=== PATIENT | male | born 1950 | race Hispanic/Latino ===

== ENCOUNTER 2017-06-25 06:02 | Inpatient (IN) | payer MEDICARE ==
[~2017-06-25] VITALS: Ht 167.6 cm; Wt 95.2 kg
[~2017-06-25 06:02] MED LIST: EZET10TA26 PO; GABA-531 PO; SERT100T12 PO
[2017-06-25 06:32] LABS: BASOPHILS % (AUTO) 0.5 % (0.0-5.0); EOSINOPHILS % (AUTO) 1.2 % (0.0-8.0); HEMATOCRIT 30.1 % (42-54); LYMPHOCYTES % (AUTO) 14.1 % (21.0-51.0); MEAN CORPUSCULAR HEMOGLOBIN 30.7 pg (27.0-33.0); MEAN CORPUSCULAR VOLUME 92.9 fL (79-99); MONOCYTES % (AUTO) 8.2 % (3.0-13.0); PLATELET COUNT (AUTO) 140 K/uL (130-400); RED BLOOD CELL COUNT(AUTO) 3.24 MIL/uL (4.50-6.20); RED CELL DISTRIBUTION WIDTH 15.2 % (11.0-15.5); WHITE BLOOD COUNT (AUTO) 15.2 K/uL (4.8-10.8)
[2017-06-25] MEDS ORDERED: NITROGLYCERIN 1GM/1 INCH PACKET TD ONE (06:40)
[2017-06-25] MEDS ORDERED: FUROSEMIDE 10 MG/ML 4ML VIAL ONE (06:40)
[2017-06-25] MEDS ORDERED: ONDANSETRON HCL 4 MG/2 ML VIAL ONE (06:44)
[2017-06-25 06:47] LABS: INR 1.07 (0.85-1.15); PARTIAL THROMBOPLASTIN TIME 31.3 SEC (26.3-35.5); PROTHROMBIN TIME 11.2 SEC (9.6-11.6)
[2017-06-25 06:57] LABS: CREATININE 1.8 mg/dL (0.5-1.5); POTASSIUM 4.5 mmol/L (3.5-5.1)
[2017-06-25 06:58] LABS: B-TYPE NATRIURETIC PEPTIDE 2210 pg/mL (0-100)
[2017-06-25 07:03] LABS: ALBUMIN 3.6 g/dL (3.5-5.0); BILIRUBIN,TOTAL 0.9 mg/dL (0.2-1.0); TOTAL PROTEIN, SERUM 8.7 g/dL (6.0-8.3)
[2017-06-25] MEDS ORDERED: DEXTROSE 50%-WATER 50 ML DISP.SYRIN IV PRN (07:30)
[2017-06-25] MEDS ORDERED: FUROSEMIDE 10 MG/ML 2ML VIAL IVP SCH (07:30)
[2017-06-25] MEDS: INSULIN R PO SS1 SQ SCH ×4 (07:30→20:50)
[2017-06-25] MEDS ORDERED: GLUCAGON 1MG KIT 1 MG ML IM PRN (07:30)
[2017-06-25] MEDS ORDERED: LEVOFLOXACIN 500 MG/D5W 100 ML 100 ML ONE (07:48)
[2017-06-25] MEDS ORDERED: ASPIRIN 325 MG TABLET ONE (08:10)
[2017-06-25] MEDS ORDERED: ASPIRIN 81MG TAB.CHEW PO SCH (09:00)
[2017-06-25] MEDS ORDERED: METOPROLOL TARTRATE 50 MG TAB PO SCH (09:00)
[2017-06-25] MEDS: ENOXAPARIN SODIUM 40 MG/0.4 ML SYRINGE SQ SCH (09:00)
[2017-06-25] MEDS ORDERED: HYDRALAZINE HCL 20 MG/ML VIAL ONE (10:54)
[2017-06-25 14:06] VITALS: BP 172/83
[2017-06-25] MEDS ORDERED: CEFEPIME 1GM+NS 50ML 50 ML IV SCH (14:45)
[2017-06-25 15:23] VITALS: BP 156/74
[2017-06-25] MEDS ORDERED: ASPI-1012 PO (15:49)
[2017-06-25] MEDS ORDERED: ATOR20TA65 PO (15:49)
[2017-06-25] MEDS ORDERED: MECL-111 PO (15:49)
[2017-06-25] MEDS ORDERED: EZET10TA26 PO (15:49)
[2017-06-25] MEDS ORDERED: INSREG SQ (15:49)
[2017-06-25] MEDS ORDERED: AMLO10TA2 PO (15:49)
[2017-06-25] MEDS ORDERED: HYD25 PO (15:49)
[2017-06-25] MEDS ORDERED: ONDA4TAB9 PO (15:49)
[2017-06-25] MEDS ORDERED: FURO20TA4 PO (15:49)
[2017-06-25] MEDS ORDERED: SERT50TA12 PO (15:49)
[2017-06-25] MEDS ORDERED: FAMO-136 PO (15:49)
[2017-06-25] MEDS ORDERED: LISI10TA7 PO (15:49)
[2017-06-25] MEDS ORDERED: BENZ-51 PO (15:49)
[2017-06-25] MEDS ORDERED: CARV12.511 PO (15:49)
[2017-06-25] MEDS ORDERED: GABA-531 PO (15:49)
[2017-06-25] MEDS ORDERED: IPRNEB IH (15:56)
[2017-06-25] MEDS ORDERED: BENZONATATE 100 MG CAPSULE PO SCH (17:30)
[2017-06-25] MEDS ORDERED: ONDANSETRON 4 MG TABLET PO PRN (17:30)
[2017-06-25] MEDS: LEVOFLOXACIN 500 MG TABLET PO SCH (17:51)
[2017-06-25] MEDS: CEFEPIME HCL 1 GM VIAL IVP SCH (17:51)
[2017-06-25] MEDS: MECLIZINE HCL 25 MG TABLET PO SCH (17:54)
[2017-06-25] MEDS ORDERED: HYDROXYZINE HCL 25 MG TABLET PO PRN (18:00)
[2017-06-25 19:42] VITALS: BP 201/97
[2017-06-25] MEDS: ATORVASTATIN CALCIUM 20 MG TABLET PO SCH (20:33)
[2017-06-25] MEDS: FAMOTIDINE 20MG TAB 20 MG TAB PO SCH (20:33)
[2017-06-25] MEDS: CARVEDILOL 12.5 MG TABLET PO SCH (20:36)
[2017-06-25 20:37] VITALS: BP 177/70
[2017-06-25] MEDS: IPRATROPIUM 0.5 MG/2.5 ML INH IH SCH (21:23)
[2017-06-26] VITALS (13 sets, daily range): BP systolic 126–177; BP diastolic 60–98
[2017-06-26] MEDS: CEFEPIME HCL 1 GM VIAL IVP SCH ×2 (02:06→14:43)
[2017-06-26] MEDS: MECLIZINE HCL 25 MG TABLET PO SCH ×4 (02:06→16:51)
[2017-06-26] MEDS ORDERED: AMLODIPINE BESYLATE 5 MG TAB PO ONE ×2 (04:09→04:14)
[2017-06-26] MEDS: AMLODIPINE BESYLATE 5 MG TAB PO SCH (04:13)
[2017-06-26] MEDS: INSULIN R PO SS1 SQ SCH ×4 (05:24→21:00)
[2017-06-26 05:54] LABS: CREATININE 1.8 mg/dL (0.5-1.5); POTASSIUM 4.3 mmol/L (3.5-5.1)
[2017-06-26] MEDS: IPRATROPIUM 0.5 MG/2.5 ML INH IH SCH ×2 (05:57→18:43)
[2017-06-26] MEDS: FUROSEMIDE 10 MG/ML 4ML VIAL IV SCH ×2 (08:32→08:43)
[2017-06-26] MEDS: FAMOTIDINE 20MG TAB 20 MG TAB PO SCH ×3 (08:32→20:21)
[2017-06-26] MEDS: EZETIMIBE 10 MG TAB PO SCH ×2 (08:32→08:44)
[2017-06-26] MEDS: ASPIRIN 325 MG TABLET PO SCH ×2 (08:32→08:44)
[2017-06-26] MEDS: GABAPENTIN 300 MG CAPSULE PO SCH ×2 (08:33→08:44)
[2017-06-26] MEDS: LISINOPRIL 10 MG TABLET PO SCH ×2 (08:33→08:44)
[2017-06-26] MEDS: CARVEDILOL 12.5 MG TABLET PO SCH ×3 (08:33→21:00)
[2017-06-26] MEDS: ENOXAPARIN SODIUM 40 MG/0.4 ML SYRINGE SQ SCH ×2 (08:34→08:44)
[2017-06-26] MEDS: SERTRALINE HCL 50 MG TABLET PO SCH ×2 (08:36→08:44)
[2017-06-26] MEDS: BENZONATATE 100 MG CAPSULE PO SCH ×2 (08:45→16:51)
[2017-06-26] MEDS ORDERED: ZOLPIDEM TARTRATE 5 MG TAB PO PRN (08:45)
[2017-06-26] MEDS ORDERED: EZETIMIBE 10 MG TAB PO SCH (09:00)
[2017-06-26] MEDS ORDERED: FUROSEMIDE 10 MG/ML 4ML VIAL IV SCH ×2 (09:00→21:00)
[2017-06-26] MEDS ORDERED: NON-FORMULARY MEDICATION 1 EACH (Sertraline HCl 100 MG) PO SCH (09:00)
[2017-06-26] MEDS ORDERED: ASPIRIN 81MG TAB.CHEW PO SCH (09:00)
[2017-06-26] MEDS: LEVOFLOXACIN 500 MG TABLET PO SCH (14:43)
[2017-06-26] MEDS: OXYCODONE/ACETAMIN 5/325MG TAB PO PRN (14:53)
[2017-06-26 16:04] LABS: APPEARANCE BODY FLUID CLOUDY (CLEAR); SPECIMENTYPE,BODY FLUID PLEURAL
[2017-06-26 16:05] LABS: BODY FLUID WBC 277 /cu. mm.; COLOR,BODY FLUID ORANGE (LT YELLOW); TOTAL VOLUME,BODY FLUID 600 mL
[2017-06-26 16:06] LABS: BODY FLUID RBC 22650 /cu. mm.
[2017-06-26 19:22] LABS: BF LYMPHOCYTE 47 %; BF MONOCYTE 6 %
[2017-06-26] MEDS: ATORVASTATIN CALCIUM 20 MG TABLET PO SCH (20:21)
[2017-06-27] VITALS (7 sets, daily range): BP systolic 144–191; BP diastolic 69–89
[2017-06-27] MEDS: MECLIZINE HCL 25 MG TABLET PO SCH ×3 (00:16→17:43)
[2017-06-27] MEDS: BENZONATATE 100 MG CAPSULE PO SCH ×3 (00:16→17:43)
[2017-06-27] MEDS: CEFEPIME HCL 1 GM VIAL IVP SCH ×2 (04:12→15:22)
[2017-06-27 05:47] LABS: CREATININE 2.1 mg/dL (0.5-1.5); POTASSIUM 4.3 mmol/L (3.5-5.1)
[2017-06-27] MEDS: IPRATROPIUM 0.5 MG/2.5 ML INH IH SCH ×2 (06:00→18:59)
[2017-06-27] MEDS: INSULIN R PO SS1 SQ SCH ×4 (06:51→20:50)
[2017-06-27] MEDS: HYDRALAZINE HCL 20 MG/ML VIAL IV PRN ×2 (06:52→23:17)
[2017-06-27] MEDS: EZETIMIBE 10 MG TAB PO SCH (08:54)
[2017-06-27] MEDS: GABAPENTIN 300 MG CAPSULE PO SCH (08:54)
[2017-06-27] MEDS: ASPIRIN 325 MG TABLET PO SCH (08:55)
[2017-06-27] MEDS: CARVEDILOL 12.5 MG TABLET PO SCH ×2 (08:55→20:49)
[2017-06-27] MEDS: FAMOTIDINE 20MG TAB 20 MG TAB PO SCH ×2 (08:56→20:49)
[2017-06-27] MEDS: AMLODIPINE BESYLATE 5 MG TAB PO SCH (08:57)
[2017-06-27] MEDS: LISINOPRIL 10 MG TABLET PO SCH (08:57)
[2017-06-27] MEDS: SERTRALINE HCL 50 MG TABLET PO SCH (08:58)
[2017-06-27] MEDS: FUROSEMIDE 40 MG TABLET PO SCH ×2 (08:59→17:43)
[2017-06-27] MEDS: ENOXAPARIN SODIUM 40 MG/0.4 ML SYRINGE SQ SCH (08:59)
[2017-06-27] MEDS ORDERED: LACTULOSE 20 GM/30 ML UDCUP PO SCH (15:00)
[2017-06-27] MEDS: LEVOFLOXACIN 500 MG TABLET PO SCH (15:21)
[2017-06-27] MEDS: ATORVASTATIN CALCIUM 20 MG TABLET PO SCH (20:49)
[2017-06-27] MEDS ORDERED: LACTULOSE 20 GM/30 ML UDCUP PO PRN (23:00)
[2017-06-28] MEDS: BENZONATATE 100 MG CAPSULE PO SCH ×4 (00:43→23:53)
[2017-06-28] MEDS: MECLIZINE HCL 25 MG TABLET PO SCH ×4 (00:43→23:55)
[2017-06-28] MEDS: CEFEPIME HCL 1 GM VIAL IVP SCH ×2 (03:27→15:59)
[2017-06-28] MEDS: HYDRALAZINE HCL 20 MG/ML VIAL IV PRN (03:35)
[2017-06-28 04:00] VITALS: BP 176/69
[2017-06-28 05:41] LABS: HEMATOCRIT 26.2 % (42-54); MEAN CORPUSCULAR HEMOGLOBIN 31.4 pg (27.0-33.0); MEAN CORPUSCULAR HGB CONC 34.4 g/dL (32.0-36.0); MEAN CORPUSCULAR VOLUME 91.4 fL (79-99); PLATELET COUNT (AUTO) 120 K/uL (130-400); RED BLOOD CELL COUNT(AUTO) 2.87 MIL/uL (4.50-6.20); RED CELL DISTRIBUTION WIDTH 15.1 % (11.0-15.5); WHITE BLOOD COUNT (AUTO) 7.7 K/uL (4.8-10.8)
[2017-06-28] MEDS: INSULIN R PO SS1 SQ SCH ×4 (05:58→20:51)
[2017-06-28 06:01] LABS: ALBUMIN 2.8 g/dL (3.5-5.0); BILIRUBIN,TOTAL 0.7 mg/dL (0.2-1.0); CREATININE 1.8 mg/dL (0.5-1.5); POTASSIUM 3.9 mmol/L (3.5-5.1); TOTAL PROTEIN, SERUM 7.2 g/dL (6.0-8.3)
[2017-06-28] MEDS: IPRATROPIUM 0.5 MG/2.5 ML INH IH SCH ×2 (07:18→18:25)
[2017-06-28 07:50] VITALS: BP 184/75
[2017-06-28 11:30] VITALS: BP 160/97
[2017-06-28] MEDS ORDERED: METOLAZONE 2.5 MG TABLET PO SCH (13:00)
[2017-06-28] MEDS: FAMOTIDINE 20MG TAB 20 MG TAB PO SCH ×2 (15:56→20:50)
[2017-06-28] MEDS: GABAPENTIN 300 MG CAPSULE PO SCH (15:56)
[2017-06-28] MEDS: FUROSEMIDE 40 MG TABLET PO SCH ×2 (15:56→23:54)
[2017-06-28] MEDS: ASPIRIN 325 MG TABLET PO SCH (15:56)
[2017-06-28] MEDS: LEVOFLOXACIN 500 MG TABLET PO SCH (15:57)
[2017-06-28] MEDS: EZETIMIBE 10 MG TAB PO SCH (15:57)
[2017-06-28] MEDS: AMLODIPINE BESYLATE 5 MG TAB PO SCH (15:57)
[2017-06-28] MEDS: SERTRALINE HCL 50 MG TABLET PO SCH (15:57)
[2017-06-28] MEDS: CARVEDILOL 12.5 MG TABLET PO SCH ×2 (15:57→20:51)
[2017-06-28] MEDS: ENOXAPARIN SODIUM 40 MG/0.4 ML SYRINGE SQ SCH (15:58)
[2017-06-28 16:48] VITALS: BP 186/92
[2017-06-28 20:00] VITALS: BP 120/61
[2017-06-28] MEDS: ATORVASTATIN CALCIUM 20 MG TABLET PO SCH (20:50)
[2017-06-28 21:09] LABS: APPEARANCE,URINE Clear (CLEAR); BILIRUBIN,URINE Negative (NEGATIVE); COLOR,URINE Yellow (YELLOW); GLUCOSE, URINE (UA) Negative (NEGATIVE); KETONES,URINE Negative (NEGATIVE); LEUKOCYTE ESTERASE ,URINE Negative (NEGATIVE); NITRATE,URINE Negative (NEGATIVE); OCCULT BLOOD,URINE Negative (NEGATIVE); PROTEIN,URINE POS 2+ (NEGATIVE); UROBILINOGEN,URINE 0.2 mg/dL (0.2-1.0)
[2017-06-28 21:17] LABS: BACTERIA,URINE Few /HPF (None Seen); RBC,URINE None Seen /HPF (0-1)
[2017-06-28 23:15] VITALS: BP 146/77
[2017-06-29] MEDS: CEFEPIME HCL 1 GM VIAL IVP SCH ×2 (03:28→16:25)
[2017-06-29 03:45] VITALS: BP 137/68
[2017-06-29 05:46] LABS: CREATININE 2.1 mg/dL (0.5-1.5); POTASSIUM 4.1 mmol/L (3.5-5.1)
[2017-06-29 05:52] LABS: % IRON SATURATION 29.3 % (30-44)
[2017-06-29] MEDS: IPRATROPIUM 0.5 MG/2.5 ML INH IH SCH ×2 (06:05→18:34)
[2017-06-29] MEDS: INSULIN R PO SS1 SQ SCH ×4 (06:40→21:00)
[2017-06-29] MEDS ORDERED: LIDOCAINE HCL-MPF 1% 5ML AMP IJ ONE (06:54)
[2017-06-29] MEDS ORDERED: MIDAZOLAM HCL 1 MG/ML 2ML VIAL ONE (06:55)
[2017-06-29] MEDS ORDERED: PROPOFOL 10 MG/ML 20ML VIAL IV ONE (06:55)
[2017-06-29] MEDS ORDERED: FENTANYL CITRATE PF 50 MCG/1 ML 2ML VIAL ONE (06:55)
[2017-06-29 07:00] VITALS: BP 142/66
[2017-06-29] MEDS ORDERED: METOLAZONE 2.5 MG TABLET PO SCH (09:45)
[2017-06-29] MEDS ORDERED: EPOETIN ALFA 10,000 UNIT/ML VIAL SQ SCH (09:45)
[2017-06-29] MEDS: CARVEDILOL 12.5 MG TABLET PO SCH ×2 (10:32→20:55)
[2017-06-29] MEDS: EZETIMIBE 10 MG TAB PO SCH (10:32)
[2017-06-29] MEDS: SERTRALINE HCL 50 MG TABLET PO SCH (10:32)
[2017-06-29] MEDS: ASPIRIN 325 MG TABLET PO SCH (10:33)
[2017-06-29] MEDS: AMLODIPINE BESYLATE 5 MG TAB PO SCH (10:33)
[2017-06-29] MEDS: FAMOTIDINE 20MG TAB 20 MG TAB PO SCH ×2 (10:33→20:55)
[2017-06-29] MEDS: MECLIZINE HCL 25 MG TABLET PO SCH ×2 (10:42→16:26)
[2017-06-29] MEDS: FUROSEMIDE 40 MG TABLET PO SCH (10:42)
[2017-06-29] MEDS: BENZONATATE 100 MG CAPSULE PO SCH ×2 (10:43→16:25)
[2017-06-29] MEDS: GABAPENTIN 300 MG CAPSULE PO SCH (10:43)
[2017-06-29] MEDS: ENOXAPARIN SODIUM 40 MG/0.4 ML SYRINGE SQ SCH (10:44)
[2017-06-29 11:00] VITALS: BP 136/63
[2017-06-29 16:00] VITALS: BP 120/57
[2017-06-29] MEDS: FUROSEMIDE 10 MG/ML 4ML VIAL IV SCH (16:26)
[2017-06-29] MEDS: LEVOFLOXACIN 500 MG TABLET PO SCH (16:26)
[2017-06-29 20:20] VITALS: BP 119/60
[2017-06-29] MEDS: ATORVASTATIN CALCIUM 20 MG TABLET PO SCH (20:55)
[2017-06-29 23:58] VITALS: BP 141/66
[2017-06-30] MEDS: BENZONATATE 100 MG CAPSULE PO SCH ×3 (01:03→18:13)
[2017-06-30] MEDS: MECLIZINE HCL 25 MG TABLET PO SCH ×3 (01:03→18:13)
[2017-06-30] MEDS: FUROSEMIDE 10 MG/ML 4ML VIAL IV SCH ×2 (03:10→15:07)
[2017-06-30] MEDS: CEFEPIME HCL 1 GM VIAL IVP SCH ×2 (03:10→15:07)
[2017-06-30 04:00] VITALS: BP 120/61
[2017-06-30 06:04] LABS: HEMATOCRIT 21.5 % (42-54); MEAN CORPUSCULAR HEMOGLOBIN 33.5 pg (27.0-33.0); MEAN CORPUSCULAR HGB CONC 37.2 g/dL (32.0-36.0); MEAN CORPUSCULAR VOLUME 90.2 fL (79-99); PLATELET COUNT (AUTO) 119 K/uL (130-400); RED BLOOD CELL COUNT(AUTO) 2.38 MIL/uL (4.50-6.20); RED CELL DISTRIBUTION WIDTH 14.4 % (11.0-15.5); WHITE BLOOD COUNT (AUTO) 6.9 K/uL (4.8-10.8)
[2017-06-30] MEDS: IPRATROPIUM 0.5 MG/2.5 ML INH IH SCH ×2 (06:08→19:24)
[2017-06-30 06:18] LABS: ALBUMIN 2.5 g/dL (3.5-5.0); BILIRUBIN,TOTAL 0.4 mg/dL (0.2-1.0); CREATININE 2.4 mg/dL (0.5-1.5); MAGNESIUM 1.9 mg/dL (1.80-2.40); PHOSPHORUS 4.3 mg/dL (2.5-4.9); POTASSIUM 4.4 mmol/L (3.5-5.1); TOTAL PROTEIN, SERUM 6.8 g/dL (6.0-8.3)
[2017-06-30 07:00] VITALS: BP 102/59
[2017-06-30] MEDS: INSULIN R PO SS1 SQ SCH ×4 (07:06→20:19)
[2017-06-30] MEDS: AMLODIPINE BESYLATE 5 MG TAB PO SCH (09:00)
[2017-06-30] MEDS: EZETIMIBE 10 MG TAB PO SCH (10:40)
[2017-06-30] MEDS: CARVEDILOL 12.5 MG TABLET PO SCH ×2 (10:40→19:55)
[2017-06-30] MEDS: ASPIRIN 325 MG TABLET PO SCH (10:40)
[2017-06-30] MEDS: FAMOTIDINE 20MG TAB 20 MG TAB PO SCH ×2 (10:40→19:55)
[2017-06-30] MEDS: GABAPENTIN 300 MG CAPSULE PO SCH (10:41)
[2017-06-30] MEDS: SERTRALINE HCL 50 MG TABLET PO SCH (10:41)
[2017-06-30] MEDS: ENOXAPARIN SODIUM 40 MG/0.4 ML SYRINGE SQ SCH (10:41)
[2017-06-30 11:00] VITALS: BP 121/52
[2017-06-30] MEDS: OXYCODONE/ACETAMIN 5/325MG TAB PO PRN (15:07)
[2017-06-30] MEDS: LEVOFLOXACIN 500 MG TABLET PO SCH (15:07)
[2017-06-30 16:00] VITALS: BP 125/63
[2017-06-30] MEDS: ATORVASTATIN CALCIUM 20 MG TABLET PO SCH (19:54)
[2017-06-30 19:56] VITALS: BP 113/53
[2017-06-30] MEDS ORDERED: EPOETIN ALFA 2,000 UNIT/ML VIAL SQ SCH (21:00)
[2017-06-30 23:25] VITALS: BP 109/53
[2017-07-01] MEDS: MECLIZINE HCL 25 MG TABLET PO SCH ×2 (01:03→08:48)
[2017-07-01] MEDS: BENZONATATE 100 MG CAPSULE PO SCH ×2 (01:03→08:46)
[2017-07-01] MEDS: OXYCODONE/ACETAMIN 5/325MG TAB PO PRN (01:05)
[2017-07-01] MEDS: FUROSEMIDE 10 MG/ML 4ML VIAL IV SCH (03:09)
[2017-07-01] MEDS: CEFEPIME HCL 1 GM VIAL IVP SCH ×2 (03:09→15:25)
[2017-07-01 04:23] VITALS: BP 140/63
[2017-07-01 05:44] LABS: HEMATOCRIT 24.1 % (42-54); MEAN CORPUSCULAR HEMOGLOBIN 30.9 pg (27.0-33.0); MEAN CORPUSCULAR VOLUME 90.8 fL (79-99); PLATELET COUNT (AUTO) 136 K/uL (130-400); RED BLOOD CELL COUNT(AUTO) 2.65 MIL/uL (4.50-6.20); RED CELL DISTRIBUTION WIDTH 14.4 % (11.0-15.5)
[2017-07-01 05:50] LABS: CREATININE 2.5 mg/dL (0.5-1.5); POTASSIUM 4.9 mmol/L (3.5-5.1)
[2017-07-01] MEDS: INSULIN R PO SS1 SQ SCH ×4 (06:11→21:00)
[2017-07-01] MEDS: IPRATROPIUM 0.5 MG/2.5 ML INH IH SCH (06:53)
[2017-07-01 07:00] VITALS: BP 129/55
[2017-07-01] MEDS: AMLODIPINE BESYLATE 5 MG TAB PO SCH (08:46)
[2017-07-01] MEDS: CARVEDILOL 12.5 MG TABLET PO SCH ×2 (08:46→19:47)
[2017-07-01] MEDS: SERTRALINE HCL 50 MG TABLET PO SCH (08:47)
[2017-07-01] MEDS: FAMOTIDINE 20MG TAB 20 MG TAB PO SCH (08:47)
[2017-07-01] MEDS: GABAPENTIN 300 MG CAPSULE PO SCH (08:47)
[2017-07-01] MEDS: EZETIMIBE 10 MG TAB PO SCH (08:48)
[2017-07-01] MEDS: ENOXAPARIN SODIUM 40 MG/0.4 ML SYRINGE SQ SCH (08:58)
[2017-07-01] MEDS: ASPIRIN 325 MG TABLET PO SCH (08:58)
[2017-07-01] MEDS ORDERED: RENAL DOSE IV PRN (10:15)
[2017-07-01] MEDS ORDERED: FAMOTIDINE 20MG TAB 20 MG TAB PO SCH (10:28)
[2017-07-01 11:00] VITALS: BP 123/49
[2017-07-01] MEDS ORDERED: SODIUM CHLORIDE 0.9% 1000ML 1,000 ML IV SCH (11:30)
[2017-07-01 16:00] VITALS: BP 111/55
[2017-07-01] MEDS: IPRATROPIUM 0.5 MG/2.5 ML INH IH PRN (18:11)
[2017-07-01] MEDS: ATORVASTATIN CALCIUM 20 MG TABLET PO SCH (19:44)
[2017-07-01] MEDS: FUROSEMIDE 40 MG TABLET PO SCH (19:45)
[2017-07-01] MEDS: FERROUS SULFATE 325 MG TABLET.DR PO SCH (19:45)
[2017-07-01 20:00] VITALS: BP 126/85
[2017-07-02] VITALS: BP 116/55
[2017-07-02] MEDS: CEFEPIME HCL 1 GM VIAL IVP SCH ×2 (02:27→15:26)
[2017-07-02 04:00] VITALS: BP 115/56
[2017-07-02 05:39] LABS: HEMATOCRIT 21.9 % (42-54); MEAN CORPUSCULAR HEMOGLOBIN 33.5 pg (27.0-33.0); MEAN CORPUSCULAR HGB CONC 37.1 g/dL (32.0-36.0); MEAN CORPUSCULAR VOLUME 90.2 fL (79-99); PLATELET COUNT (AUTO) 113 K/uL (130-400); RED BLOOD CELL COUNT(AUTO) 2.43 MIL/uL (4.50-6.20); WHITE BLOOD COUNT (AUTO) 6.5 K/uL (4.8-10.8)
[2017-07-02 05:48] LABS: CREATININE 2.7 mg/dL (0.5-1.5); POTASSIUM 4.7 mmol/L (3.5-5.1)
[2017-07-02] MEDS: IPRATROPIUM 0.5 MG/2.5 ML INH IH PRN (07:19)
[2017-07-02 07:24] VITALS: BP 131/59
[2017-07-02] MEDS: INSULIN R PO SS1 SQ SCH ×2 (07:30→15:25)
[2017-07-02] MEDS ORDERED: FAMOTIDINE 20MG TAB 20 MG TAB PO SCH (09:00)
[2017-07-02] MEDS ORDERED: FUROSEMIDE 40 MG TABLET PO SCH (09:00)
[2017-07-02] MEDS: GABAPENTIN 300 MG CAPSULE PO SCH (10:45)
[2017-07-02] MEDS: AMLODIPINE BESYLATE 5 MG TAB PO SCH (10:46)
[2017-07-02] MEDS: SERTRALINE HCL 50 MG TABLET PO SCH (10:46)
[2017-07-02] MEDS: EZETIMIBE 10 MG TAB PO SCH (10:47)
[2017-07-02] MEDS: FUROSEMIDE 40 MG TABLET PO SCH (10:47)
[2017-07-02] MEDS: FERROUS SULFATE 325 MG TABLET.DR PO SCH (10:47)
[2017-07-02] MEDS: ASPIRIN 325 MG TABLET PO SCH (10:47)
[2017-07-02] MEDS: CARVEDILOL 12.5 MG TABLET PO SCH (10:47)
[2017-07-02] MEDS: ENOXAPARIN SODIUM 40 MG/0.4 ML SYRINGE SQ SCH (10:55)
[2017-07-02] MEDS: OXYCODONE/ACETAMIN 5/325MG TAB PO PRN (10:57)
[2017-07-02 11:00] VITALS: BP 121/49
[2017-07-02] MEDS ORDERED: LEVOFLOXACIN 500 MG TABLET PO SCH (14:00)
[2017-07-02 16:00] VITALS: BP 105/53
== END 2017-07-02 15:30 | DRG 871 ==
LOC: EDH 06:02 → EDHIP 07:10 → 4BH 12:10 → 4CH 12:52 → 4BH 13:07
PROVIDERS: ADMIT Internal Medicine Infectious Disease; ATTEND Internal Medicine Infectious Disease
PROC: 5A09357 Assistance with Respiratory Ventilation, Less than 24 Consecutive Hours, Continuous Positive Airway Pressure (ICD-10-PCS; 2017-06-25)
PROC: 0W9930Z Drainage of Right Pleural Cavity with Drainage Device, Percutaneous Approach (ICD-10-PCS; principal; 2017-06-26)
PROC: 5A09357 Assistance with Respiratory Ventilation, Less than 24 Consecutive Hours, Continuous Positive Airway Pressure (ICD-10-PCS; 2017-06-26)
DX: A41.9 Sepsis, unspecified organism (principal); J18.9 Pneumonia, unspecified organism; J96.91 Respiratory failure, unspecified with hypoxia; I21.4 Non-ST elevation (NSTEMI) myocardial infarction; N17.9 Acute kidney failure, unspecified; I13.2 Hypertensive heart and chronic kidney disease with heart failure and with stage 5 chronic kidney disease, or end stage renal disease; J90 Pleural effusion, not elsewhere classified; N18.6 End stage renal disease; I50.23 Acute on chronic systolic (congestive) heart failure; J44.0 Chronic obstructive pulmonary disease with (acute) lower respiratory infection; L03.90 Cellulitis, unspecified; J44.1 Chronic obstructive pulmonary disease with (acute) exacerbation; K52.9 Noninfective gastroenteritis and colitis, unspecified; I25.10 Atherosclerotic heart disease of native coronary artery without angina pectoris; G40.909 Epilepsy, unspecified, not intractable, without status epilepticus; G47.33 Obstructive sleep apnea (adult) (pediatric); E87.5 Hyperkalemia; E78.5 Hyperlipidemia, unspecified; E78.00 Pure hypercholesterolemia, unspecified; E66.01 Morbid (severe) obesity due to excess calories; E11.22 Type 2 diabetes mellitus with diabetic chronic kidney disease; I25.5 Ischemic cardiomyopathy; D64.9 Anemia, unspecified; B95.62 Methicillin resistant Staphylococcus aureus infection as the cause of diseases classified elsewhere; Z68.33 Body mass index [BMI] 33.0-33.9, adult; I25.2 Old myocardial infarction; Z99.81 Dependence on supplemental oxygen; Z72.0 Tobacco use; Z95.1 Presence of aortocoronary bypass graft; Z99.2 Dependence on renal dialysis; Z91.19 Patient's noncompliance with other medical treatment and regimen; Z88.0 Allergy status to penicillin; Z83.3 Family history of diabetes mellitus; Z82.49 Family history of ischemic heart disease and other diseases of the circulatory system
CPT/HCPCS: 36415; 71045; 71046; 71250; 76770; 80048; 80053; 81001; 82550; 82945; 82948; 83540; 83550; 83615; 83735; 83880; 83986; 84100; 84155; 84157; 84484; 85025; 85027; 85610; 85730; 87040; 87071; 87103; 87116; 87205; 87206; 88108; 88341; 88342; 89051; 93005; 93306; 94640; 94660; 94664; 99291; A4218; J0360; J0692; J0885; J1650; J1940; J1956; J2250; J2405; J2704; J3010; J3490

== ENCOUNTER 2017-07-26 22:40 | Inpatient (IN) | payer MEDICARE ==
[~2017-07-26] VITALS: Ht 167.6 cm; Wt 98.6 kg
[~2017-07-26 22:40] MED LIST changes: +AMLO10TA2 PO; +ASPI-1012 PO; +ATOR20TA65 PO; +BENZ-51 PO; +CARV12.511 PO; +FAMO-136 PO; +FURO20TA4 PO; +HYD25 PO; +INSREG SQ; +IPRNEB IH; +LISI10TA7 PO; +MECL-111 PO; +ONDA4TAB9 PO; +SERT50TA12 PO
[2017-07-26] MEDS ORDERED: ASPIRIN 81MG TAB.CHEW ONE (23:01)
[2017-07-26 23:06] LABS: ABG BASE EXCESS -2.2 mmol/L (-2.0-3.0); ABG HCO3 21.6 mmol/L (21.0-28.0); ABG PCO2 35 mmHg (35-48)
[2017-07-26 23:31] LABS: BASOPHILS % (AUTO) 0.5 % (0.0-5.0); EOSINOPHILS % (AUTO) 2.6 % (0.0-8.0); HEMATOCRIT 25.8 % (42-54); LYMPHOCYTES % (AUTO) 10.3 % (21.0-51.0); MEAN CORPUSCULAR HEMOGLOBIN 30.7 pg (27.0-33.0); MEAN CORPUSCULAR HGB CONC 33.8 g/dL (32.0-36.0); MEAN CORPUSCULAR VOLUME 90.8 fL (79-99); MONOCYTES % (AUTO) 8.8 % (3.0-13.0); NEUTROPHILS % (AUTO) 77.8 % (40.0-77.0); PLATELET COUNT (AUTO) 146 K/uL (130-400); RED BLOOD CELL COUNT(AUTO) 2.85 MIL/uL (4.50-6.20); WHITE BLOOD COUNT (AUTO) 10.6 K/uL (4.8-10.8)
[2017-07-26 23:42] LABS: INR 1.08 (0.85-1.15); PARTIAL THROMBOPLASTIN TIME 32.9 SEC (26.3-35.5); PROTHROMBIN TIME 11.3 SEC (9.6-11.6)
[2017-07-26 23:44] LABS: CREATININE 1.4 mg/dL (0.5-1.5); POTASSIUM 5.3 mmol/L (3.5-5.1)
[2017-07-26 23:58] LABS: ALBUMIN 3.3 g/dL (3.5-5.0); BILIRUBIN,TOTAL 0.9 mg/dL (0.2-1.0); TOTAL PROTEIN, SERUM 8.3 g/dL (6.0-8.3)
[2017-07-27 00:06] LABS: B-TYPE NATRIURETIC PEPTIDE 1910 pg/mL (0-100)
[2017-07-27] MEDS ORDERED: FUROSEMIDE 10 MG/ML 4ML VIAL ONE (01:01)
[2017-07-27 01:16] LABS: APPEARANCE,URINE Cloudy (CLEAR); BILIRUBIN,URINE Negative (NEGATIVE); COLOR,URINE Yellow (YELLOW); GLUCOSE, URINE (UA) Negative (NEGATIVE); KETONES,URINE Negative (NEGATIVE); LEUKOCYTE ESTERASE ,URINE Negative (NEGATIVE); NITRATE,URINE Negative (NEGATIVE); OCCULT BLOOD,URINE Moderate (NEGATIVE); PROTEIN,URINE >=1000 (NEGATIVE)
[2017-07-27 01:27] LABS: BACTERIA,URINE None Seen /HPF (None Seen); RBC,URINE 0-1 /HPF (0-1); SQUAMOUS EPITHELIAL CELL,UR Few /LPF (0-2); WBC,URINE None Seen /HPF (0-1); YEAST,URINE BUDDING Few /HPF (None Seen)
[2017-07-27] MEDS ORDERED: GLUCAGON 1MG KIT 1 MG ML IM PRN ×2 (06:00→06:30)
[2017-07-27] MEDS ORDERED: DEXTROSE 50%-WATER 50 ML DISP.SYRIN IV PRN ×2 (06:00→06:30)
[2017-07-27] MEDS ORDERED: LIDOCAINE HCL-MPF 1% 2ML VIAL IJ PRN (06:00)
[2017-07-27] MEDS ORDERED: POTASSIUM CHLORIDE 10% ELIXIR 20 MEQ/15 ML UDCUP PO PRN ×2 (06:00→06:30)
[2017-07-27] MEDS ORDERED: POTASSIUM CHLORIDE 20MEQ/100ML 100 ML IV PRN ×2 (06:00→06:30)
[2017-07-27] MEDS ORDERED: POTASSIUM CHLORIDE 20 MEQ ERTAB PO PRN ×2 (06:00→06:30)
[2017-07-27] MEDS ORDERED: IPRATROPIUM/ALBUTEROL SULFATE 3 ML SOLUTION IH PRN (06:15)
[2017-07-27 06:20] VITALS: BP 151/69
[2017-07-27] MEDS ORDERED: LIDOCAINE HCL-MPF 1% 2ML VIAL IVP PRN (06:30)
[2017-07-27 06:51] LABS: CREATININE 1.6 mg/dL (0.5-1.5); POTASSIUM 5.5 mmol/L (3.5-5.1)
[2017-07-27 06:57] LABS: EOSINOPHILS % (AUTO) 2.4 % (0.0-8.0); HEMATOCRIT 23.1 % (42-54); LYMPHOCYTES % (AUTO) 18.9 % (21.0-51.0); MEAN CORPUSCULAR HEMOGLOBIN 30.9 pg (27.0-33.0); MEAN CORPUSCULAR HGB CONC 34.1 g/dL (32.0-36.0); MEAN CORPUSCULAR VOLUME 90.4 fL (79-99); MONOCYTES % (AUTO) 10.3 % (3.0-13.0); NEUTROPHILS % (AUTO) 67.4 % (40.0-77.0); PLATELET COUNT (AUTO) 123 K/uL (130-400); RED BLOOD CELL COUNT(AUTO) 2.55 MIL/uL (4.50-6.20); RED CELL DISTRIBUTION WIDTH 14.8 % (11.0-15.5); WHITE BLOOD COUNT (AUTO) 8.3 K/uL (4.8-10.8)
[2017-07-27] MEDS: INSULIN R PO SS1 SQ SCH ×4 (06:57→21:00)
[2017-07-27 07:00] VITALS: BP 151/69
[2017-07-27] MEDS: ENOXAPARIN SODIUM 40 MG/0.4 ML SYRINGE SQ SCH (09:00)
[2017-07-27] MEDS ORDERED: CEFTRIAXONE 1GM/D5W 50ML 50 ML IV SCH (09:00)
[2017-07-27] MEDS: AZITHROMYCIN 250 MG TABLET PO SCH (09:00)
[2017-07-27] MEDS: FUROSEMIDE 10 MG/ML 4ML VIAL IVP SCH ×2 (09:00→21:00)
[2017-07-27 11:00] VITALS: BP 138/57
[2017-07-28] MEDS ORDERED: CHOL100018 PO (03:50)
[2017-07-28] MEDS ORDERED: FOLI0.8T22 PO (03:50)
[2017-07-28] MEDS ORDERED: GABA-531 PO (03:50)
[2017-07-28] MEDS: INSULIN R PO SS1 SQ SCH ×2 (06:42→11:30)
[2017-07-28] MEDS: AZITHROMYCIN 250 MG TABLET PO SCH (09:00)
[2017-07-28] MEDS: FUROSEMIDE 10 MG/ML 4ML VIAL IVP SCH (09:00)
[2017-07-28] MEDS: ENOXAPARIN SODIUM 40 MG/0.4 ML SYRINGE SQ SCH (09:00)
[2017-07-28] MEDS ORDERED: FUROSEMIDE 10 MG/ML 4ML VIAL IV SCH (12:15)
== END 2017-07-28 16:00 | DRG 291 ==
LOC: EDH 22:40 → OBSVTOIN 07-27 04:50 → EDHIP 07-27 04:50 → 3CH 07-27 05:19
PROVIDERS: ADMIT Internal Medicine; ATTEND Internal Medicine
DX: I11.0 Hypertensive heart disease with heart failure (principal); J96.91 Respiratory failure, unspecified with hypoxia; F05 Delirium due to known physiological condition; J44.1 Chronic obstructive pulmonary disease with (acute) exacerbation; I50.23 Acute on chronic systolic (congestive) heart failure; E11.51 Type 2 diabetes mellitus with diabetic peripheral angiopathy without gangrene; I50.9 Heart failure, unspecified; I25.10 Atherosclerotic heart disease of native coronary artery without angina pectoris; G47.30 Sleep apnea, unspecified; G40.909 Epilepsy, unspecified, not intractable, without status epilepticus; E11.9 Type 2 diabetes mellitus without complications; F03.90 Unspecified dementia, unspecified severity, without behavioral disturbance, psychotic disturbance, mood disturbance, and anxiety; J45.909 Unspecified asthma, uncomplicated; Z88.0 Allergy status to penicillin
CPT/HCPCS: 36415; 36600; 71045; 80048; 80053; 81001; 82550; 82553; 82803; 82948; 83874; 83880; 84484; 85025; 85610; 85730; 87804; 93005; 94640; 94660; 94664; 99291; J1650; J1940

== ENCOUNTER 2017-09-04 17:37 | Inpatient (IN) | payer MEDICARE ==
[~2017-09-04] VITALS: Ht 167.6 cm; Wt 90.8 kg
[~2017-09-04 17:37] MED LIST changes: -ATOR20TA65 PO; +CHOL100018 PO; -FAMO-136 PO; +FOLI0.8T22 PO; -HYD25 PO; -INSREG SQ; -LISI10TA7 PO; -MECL-111 PO; -ONDA4TAB9 PO; -SERT50TA12 PO
[2017-09-04 18:20] LABS: BASOPHILS % (AUTO) 0.5 % (0.0-5.0); EOSINOPHILS % (AUTO) 4.2 % (0.0-8.0); HEMATOCRIT 28.7 % (42-54); LYMPHOCYTES % (AUTO) 9.6 % (21.0-51.0); MEAN CORPUSCULAR HEMOGLOBIN 30.4 pg (27.0-33.0); MEAN CORPUSCULAR HGB CONC 33.6 g/dL (32.0-36.0); MEAN CORPUSCULAR VOLUME 90.5 fL (79-99); MONOCYTES % (AUTO) 7.2 % (3.0-13.0); NEUTROPHILS % (AUTO) 78.5 % (40.0-77.0); PLATELET COUNT (AUTO) 171 K/uL (130-400); RED BLOOD CELL COUNT(AUTO) 3.18 MIL/uL (4.50-6.20); RED CELL DISTRIBUTION WIDTH 17.1 % (11.0-15.5); WHITE BLOOD COUNT (AUTO) 10.6 K/uL (4.8-10.8)
[2017-09-04 18:45] LABS: B-TYPE NATRIURETIC PEPTIDE 1580 pg/mL (0-100)
[2017-09-04 18:47] LABS: CREATININE 1.6 mg/dL (0.5-1.5)
[2017-09-04 18:51] LABS: INR 1.03 (0.85-1.15); PARTIAL THROMBOPLASTIN TIME 30.6 SEC (26.3-35.5); PROTHROMBIN TIME 10.8 SEC (9.6-11.6)
[2017-09-04 18:52] LABS: ALBUMIN 3.3 g/dL (3.5-5.0); BILIRUBIN,TOTAL 0.5 mg/dL (0.2-1.0); TOTAL PROTEIN, SERUM 8.5 g/dL (6.0-8.3)
[2017-09-04] MEDS ORDERED: NITROGLYCERIN 1GM/1 INCH PACKET TD ONE (18:56)
[2017-09-04] MEDS ORDERED: FUROSEMIDE 10 MG/ML 4ML VIAL ONE (19:32)
[2017-09-04] MEDS ORDERED: FUROSEMIDE 10 MG/ML 2ML VIAL ONE (19:32)
[2017-09-04 19:43] LABS: ABG BASE EXCESS -6.2 mmol/L (-2.0-3.0); ABG HCO3 19.6 mmol/L (21.0-28.0); ABG OXYGEN SATURATION 97.2 % (95.0-99.0); ABG PCO2 40 mmHg (35-48)
[2017-09-04 20:25] LABS: APPEARANCE,URINE Clear (CLEAR); BILIRUBIN,URINE Negative (NEGATIVE); COLOR,URINE Yellow (YELLOW); GLUCOSE, URINE (UA) Negative (NEGATIVE); KETONES,URINE Negative (NEGATIVE); LEUKOCYTE ESTERASE ,URINE Negative (NEGATIVE); NITRATE,URINE Negative (NEGATIVE); OCCULT BLOOD,URINE Small (NEGATIVE); PROTEIN,URINE POS 2+ (NEGATIVE); UROBILINOGEN,URINE 0.2 mg/dL (0.2-1.0)
[2017-09-04 20:41] LABS: BACTERIA,URINE Few /HPF (None Seen); RBC,URINE 0-1 /HPF (0-1); SQUAMOUS EPITHELIAL CELL,UR Rare /HPF (0-2); WBC,URINE 0-1 /HPF (0-1)
[2017-09-04 22:04] LABS: CREATINE KINASE MB 3.1 ng/mL (0.5-3.6)
[2017-09-04 22:25] VITALS: BP 156/69
[2017-09-05] MEDS ORDERED: GLUCAGON 1MG KIT 1 MG ML IM PRN (01:15)
[2017-09-05] MEDS ORDERED: DEXTROSE 50%-WATER 50 ML DISP.SYRIN IV PRN (01:15)
[2017-09-05 04:11] LABS: BASOPHILS % (AUTO) 0.5 % (0.0-5.0); EOSINOPHILS % (AUTO) 3.1 % (0.0-8.0); HEMATOCRIT 24.4 % (42-54); LYMPHOCYTES % (AUTO) 16.6 % (21.0-51.0); MEAN CORPUSCULAR HGB CONC 34.4 g/dL (32.0-36.0); MEAN CORPUSCULAR VOLUME 90.1 fL (79-99); MONOCYTES % (AUTO) 7.4 % (3.0-13.0); NEUTROPHILS % (AUTO) 72.4 % (40.0-77.0); PLATELET COUNT (AUTO) 148 K/uL (130-400); RED BLOOD CELL COUNT(AUTO) 2.71 MIL/uL (4.50-6.20); RED CELL DISTRIBUTION WIDTH 16.8 % (11.0-15.5)
[2017-09-05 04:18] LABS: B-TYPE NATRIURETIC PEPTIDE 2020 pg/mL (0-100)
[2017-09-05 04:21] VITALS: BP 178/86
[2017-09-05 04:29] LABS: ALBUMIN 2.7 g/dL (3.5-5.0); BILIRUBIN,TOTAL 0.6 mg/dL (0.2-1.0); CREATINE KINASE MB 2.4 ng/mL (0.5-3.6); CREATININE 1.5 mg/dL (0.5-1.5); POTASSIUM 4.9 mmol/L (3.5-5.1); TROPONIN I 0.14 ng/mL (0.00-0.06)
[2017-09-05] MEDS: INSULIN HUMULIN R 100 UNIT/ML 3ML SQ SCH ×4 (06:33→20:56)
[2017-09-05 07:28] VITALS: BP 153/74
[2017-09-05] MEDS: FAMOTIDINE 20MG TAB 20 MG TAB PO SCH (10:39)
[2017-09-05] MEDS: FUROSEMIDE 10 MG/ML 4ML VIAL IVP SCH ×2 (10:40→20:58)
[2017-09-05] MEDS: ENOXAPARIN SODIUM 30 MG/0.3 ML SQ SCH (10:40)
[2017-09-05 11:37] VITALS: BP 163/73
[2017-09-05 16:05] VITALS: BP 148/65
[2017-09-05 20:26] VITALS: BP 141/65
[2017-09-05] MEDS: CARVEDILOL 12.5 MG TABLET PO SCH (20:58)
[2017-09-05 23:23] VITALS: BP 130/64
[2017-09-06 03:21] VITALS: BP 158/71
[2017-09-06] MEDS: INSULIN HUMULIN R 100 UNIT/ML 3ML SQ SCH ×4 (06:10→21:00)
[2017-09-06 07:03] LABS: CREATININE 1.8 mg/dL (0.5-1.5); POTASSIUM 4.8 mmol/L (3.5-5.1)
[2017-09-06 07:25] VITALS: BP 192/79
[2017-09-06] MEDS ORDERED: ACETAMINOPHEN 325 MG TAB ONE (10:45)
[2017-09-06] MEDS: ASPIRIN 81MG TAB.CHEW PO SCH (10:47)
[2017-09-06] MEDS: CARVEDILOL 12.5 MG TABLET PO SCH ×2 (10:47→21:32)
[2017-09-06] MEDS: LOSARTAN 50 MG TABLET PO SCH (10:47)
[2017-09-06] MEDS: FUROSEMIDE 10 MG/ML 4ML VIAL IVP SCH ×2 (10:48→21:31)
[2017-09-06] MEDS: FAMOTIDINE 20MG TAB 20 MG TAB PO SCH (10:48)
[2017-09-06] MEDS: ENOXAPARIN SODIUM 30 MG/0.3 ML SQ SCH (10:48)
[2017-09-06 11:40] VITALS: BP 163/69
[2017-09-06 16:09] VITALS: BP 136/63
[2017-09-06 19:38] VITALS: BP 148/64
[2017-09-06] MEDS: ATORVASTATIN CALCIUM 20 MG TABLET PO SCH (21:32)
[2017-09-06 23:18] VITALS: BP 165/70
[2017-09-07 03:44] VITALS: BP 158/71
[2017-09-07 04:04] LABS: POTASSIUM 4.8 mmol/L (3.5-5.1)
[2017-09-07] MEDS: INSULIN HUMULIN R 100 UNIT/ML 3ML SQ SCH ×4 (06:37→20:56)
[2017-09-07 07:47] VITALS: BP 174/91
[2017-09-07] MEDS: CARVEDILOL 12.5 MG TABLET PO SCH ×2 (07:49→20:56)
[2017-09-07] MEDS: FUROSEMIDE 40 MG TABLET PO SCH ×2 (07:49→15:38)
[2017-09-07] MEDS: LOSARTAN 50 MG TABLET PO SCH (07:49)
[2017-09-07] MEDS: SERTRALINE HCL 50 MG TABLET PO SCH (07:49)
[2017-09-07] MEDS: ENOXAPARIN SODIUM 30 MG/0.3 ML SQ SCH (07:50)
[2017-09-07] MEDS: FAMOTIDINE 20MG TAB 20 MG TAB PO SCH (07:50)
[2017-09-07] MEDS: ASPIRIN 81MG TAB.CHEW PO SCH (07:50)
[2017-09-07] MEDS: FUROSEMIDE 10 MG/ML 4ML VIAL IVP SCH (07:54)
[2017-09-07 11:17] VITALS: BP 184/80
[2017-09-07 19:42] VITALS: BP 164/73
[2017-09-07] MEDS: ATORVASTATIN CALCIUM 20 MG TABLET PO SCH (20:55)
[2017-09-07 23:26] VITALS: BP 173/95
[2017-09-08 03:34] VITALS: BP 179/83
[2017-09-08] MEDS: CARVEDILOL 12.5 MG TABLET PO SCH ×2 (07:06→21:24)
[2017-09-08] MEDS: INSULIN HUMULIN R 100 UNIT/ML 3ML SQ SCH ×3 (07:08→21:00)
[2017-09-08] MEDS: FAMOTIDINE 20MG TAB 20 MG TAB PO SCH (07:31)
[2017-09-08] MEDS: LOSARTAN 50 MG TABLET PO SCH (07:32)
[2017-09-08] MEDS: ASPIRIN 81MG TAB.CHEW PO SCH (07:33)
[2017-09-08] MEDS: FUROSEMIDE 40 MG TABLET PO SCH ×2 (07:33→18:05)
[2017-09-08] MEDS: SERTRALINE HCL 50 MG TABLET PO SCH (07:33)
[2017-09-08] MEDS: ENOXAPARIN SODIUM 30 MG/0.3 ML SQ SCH (07:34)
[2017-09-08 07:39] VITALS: BP 176/68
[2017-09-08 08:22] LABS: CREATININE 1.8 mg/dL (0.5-1.5); POTASSIUM 4.6 mmol/L (3.5-5.1)
[2017-09-08 12:40] VITALS: BP 157/93
[2017-09-08 20:00] VITALS: BP 158/62
[2017-09-08] MEDS: ATORVASTATIN CALCIUM 20 MG TABLET PO SCH (21:24)
[2017-09-09] VITALS (14 sets, daily range): BP systolic 132–166; BP diastolic 47–104
[2017-09-09 04:09] LABS: CREATININE 1.8 mg/dL (0.5-1.5); POTASSIUM 4.9 mmol/L (3.5-5.1)
[2017-09-09] MEDS: INSULIN HUMULIN R 100 UNIT/ML 3ML SQ SCH ×4 (06:40→21:45)
[2017-09-09] MEDS: ENOXAPARIN SODIUM 30 MG/0.3 ML SQ SCH (09:00)
[2017-09-09] MEDS: CARVEDILOL 12.5 MG TABLET PO SCH ×2 (09:00→20:05)
[2017-09-09] MEDS: FUROSEMIDE 40 MG TABLET PO SCH ×2 (13:51→16:45)
[2017-09-09] MEDS: FAMOTIDINE 20MG TAB 20 MG TAB PO SCH (13:52)
[2017-09-09] MEDS: LOSARTAN 50 MG TABLET PO SCH (13:52)
[2017-09-09] MEDS: ASPIRIN 81MG TAB.CHEW PO SCH (13:52)
[2017-09-09] MEDS: GABAPENTIN 100 MG CAPSULE PO SCH ×2 (13:53→20:04)
[2017-09-09] MEDS: SERTRALINE HCL 50 MG TABLET PO SCH (13:53)
[2017-09-09] MEDS ORDERED: LIDOCAINE HCL 1% 20 ML VIAL ONE (14:50)
[2017-09-09] MEDS ORDERED: ACETAMINOPHEN 325 MG TAB ONE (16:37)
[2017-09-09] MEDS ORDERED: TRAMADOL HCL 50 MG TABLET ONE (16:43)
[2017-09-09 19:25] LABS: SPECIMENTYPE,BODY FLUID PLEURAL
[2017-09-09 19:26] LABS: APPEARANCE BODY FLUID CLOUDY (CLEAR); BODY FLUID WBC 417 /cu. mm.; COLOR,BODY FLUID DARK YELLOW (LT YELLOW); TOTAL VOLUME,BODY FLUID 800 mL
[2017-09-09 19:27] LABS: BODY FLUID RBC 5330 /cu. mm.
[2017-09-09 19:41] LABS: BF LYMPHOCYTE 75 %; BF MONOCYTE 4 %
[2017-09-09] MEDS: ATORVASTATIN CALCIUM 20 MG TABLET PO SCH (20:04)
[2017-09-09] MEDS: ACETAMINOPHEN 325 MG TAB PO PRN (20:07)
[2017-09-09] MEDS: TRAMADOL HCL 50 MG TABLET PO PRN (22:53)
[2017-09-10 03:00] VITALS: BP 127/57
[2017-09-10 04:07] LABS: BASOPHILS % (AUTO) 0.5 % (0.0-5.0); EOSINOPHILS % (AUTO) 4.1 % (0.0-8.0); HEMATOCRIT 26.1 % (42-54); LYMPHOCYTES % (AUTO) 16.4 % (21.0-51.0); MEAN CORPUSCULAR HEMOGLOBIN 31.6 pg (27.0-33.0); MEAN CORPUSCULAR HGB CONC 35.4 g/dL (32.0-36.0); MEAN CORPUSCULAR VOLUME 89.3 fL (79-99); MONOCYTES % (AUTO) 6.7 % (3.0-13.0); NEUTROPHILS % (AUTO) 72.3 % (40.0-77.0); PLATELET COUNT (AUTO) 153 K/uL (130-400); RED BLOOD CELL COUNT(AUTO) 2.93 MIL/uL (4.50-6.20); RED CELL DISTRIBUTION WIDTH 16.8 % (11.0-15.5); WHITE BLOOD COUNT (AUTO) 7.9 K/uL (4.8-10.8)
[2017-09-10 04:23] LABS: BILIRUBIN,TOTAL 0.3 mg/dL (0.2-1.0); CREATININE 1.9 mg/dL (0.5-1.5); POTASSIUM 4.9 mmol/L (3.5-5.1); TOTAL PROTEIN, SERUM 7.6 g/dL (6.0-8.3)
[2017-09-10] MEDS: TRAMADOL HCL 50 MG TABLET PO PRN ×2 (05:06→19:57)
[2017-09-10 05:32] LABS: B-TYPE NATRIURETIC PEPTIDE 1110 pg/mL (0-100)
[2017-09-10] MEDS: INSULIN HUMULIN R 100 UNIT/ML 3ML SQ SCH ×4 (06:03→21:00)
[2017-09-10 08:00] VITALS: BP 160/118
[2017-09-10 08:32] LABS: ABG BASE EXCESS -3.4 mmol/L (-2.0-3.0); ABG HCO3 21.3 mmol/L (21.0-28.0); ABG OXYGEN SATURATION 91.4 % (95.0-99.0); ABG PCO2 38 mmHg (35-48)
[2017-09-10] MEDS: FAMOTIDINE 20MG TAB 20 MG TAB PO SCH (08:44)
[2017-09-10] MEDS: ASPIRIN 81MG TAB.CHEW PO SCH (08:44)
[2017-09-10] MEDS: LOSARTAN 50 MG TABLET PO SCH (08:44)
[2017-09-10] MEDS: GABAPENTIN 100 MG CAPSULE PO SCH ×2 (08:44→21:57)
[2017-09-10] MEDS: SERTRALINE HCL 50 MG TABLET PO SCH (08:44)
[2017-09-10] MEDS: CARVEDILOL 12.5 MG TABLET PO SCH ×2 (08:45→21:58)
[2017-09-10] MEDS: FUROSEMIDE 40 MG TABLET PO SCH ×2 (08:45→17:03)
[2017-09-10] MEDS: ENOXAPARIN SODIUM 30 MG/0.3 ML SQ SCH (08:46)
[2017-09-10] MEDS ORDERED: ASPI-1005 PO (10:44)
[2017-09-10] MEDS ORDERED: LOSA50TA2 PO (10:44)
[2017-09-10] MEDS ORDERED: ATOR20TA65 PO (10:44)
[2017-09-10 12:00] VITALS: BP 184/79
[2017-09-10 16:00] VITALS: BP 151/70
[2017-09-10 19:00] VITALS: BP 120/62
[2017-09-10] MEDS ORDERED: HALOPERIDOL 1 MG TABLET PO PRN (19:00)
[2017-09-10] MEDS: ATORVASTATIN CALCIUM 20 MG TABLET PO SCH (21:58)
[2017-09-10] MEDS: FUROSEMIDE 10 MG/ML 4ML VIAL IV SCH (22:12)
[2017-09-10 23:00] VITALS: BP 157/65
[2017-09-11] MEDS: TRAMADOL HCL 50 MG TABLET PO PRN ×3 (02:54→21:28)
[2017-09-11 03:00] VITALS: BP 152/75
[2017-09-11] MEDS: HYDRALAZINE HCL 25 MG TABLET PO SCH ×4 (03:00→21:20)
[2017-09-11] MEDS: INSULIN HUMULIN R 100 UNIT/ML 3ML SQ SCH ×4 (06:30→21:00)
[2017-09-11 06:36] LABS: HEMATOCRIT 26.6 % (42-54); MEAN CORPUSCULAR HEMOGLOBIN 32.6 pg (27.0-33.0); MEAN CORPUSCULAR HGB CONC 36.2 g/dL (32.0-36.0); MEAN CORPUSCULAR VOLUME 90.1 fL (79-99); PLATELET COUNT (AUTO) 153 K/uL (130-400); RED BLOOD CELL COUNT(AUTO) 2.95 MIL/uL (4.50-6.20); RED CELL DISTRIBUTION WIDTH 16.2 % (11.0-15.5); WHITE BLOOD COUNT (AUTO) 7.9 K/uL (4.8-10.8)
[2017-09-11 06:54] LABS: CREATININE 1.9 mg/dL (0.5-1.5); MAGNESIUM 1.9 mg/dL (1.80-2.40); PHOSPHORUS 3.9 mg/dL (2.5-4.9); POTASSIUM 4.8 mmol/L (3.5-5.1); THYROID STIMULATING HORMONE 1.76 uIU/mL (0.36-3.74)
[2017-09-11] MEDS: FUROSEMIDE 10 MG/ML 4ML VIAL IV SCH ×2 (07:51→21:20)
[2017-09-11 08:02] VITALS: BP 137/61
[2017-09-11] MEDS: ASPIRIN 81MG TAB.CHEW PO SCH (09:35)
[2017-09-11] MEDS: ISOSORBIDE MONO 30MG TAB SR PO SCH (09:35)
[2017-09-11] MEDS: LOSARTAN 50 MG TABLET PO SCH (09:35)
[2017-09-11] MEDS: SERTRALINE HCL 50 MG TABLET PO SCH (09:35)
[2017-09-11] MEDS: FAMOTIDINE 20MG TAB 20 MG TAB PO SCH (09:35)
[2017-09-11] MEDS: GABAPENTIN 100 MG CAPSULE PO SCH ×2 (09:36→21:18)
[2017-09-11] MEDS: CARVEDILOL 12.5 MG TABLET PO SCH ×2 (09:36→21:18)
[2017-09-11] MEDS: ENOXAPARIN SODIUM 30 MG/0.3 ML SQ SCH (09:37)
[2017-09-11 12:11] VITALS: BP 114/66
[2017-09-11 15:57] VITALS: BP 124/71
[2017-09-11 19:00] VITALS: BP 137/66
[2017-09-11] MEDS: ATORVASTATIN CALCIUM 20 MG TABLET PO SCH (21:17)
[2017-09-11 23:00] VITALS: BP 134/61
[2017-09-12 03:00] VITALS: BP 133/66
[2017-09-12] MEDS: HYDRALAZINE HCL 25 MG TABLET PO SCH ×4 (04:11→21:01)
[2017-09-12] MEDS: TRAMADOL HCL 50 MG TABLET PO PRN ×2 (04:11→20:57)
[2017-09-12] MEDS: FUROSEMIDE 10 MG/ML 4ML VIAL IV SCH ×2 (05:49→19:33)
[2017-09-12] MEDS: INSULIN HUMULIN R 100 UNIT/ML 3ML SQ SCH ×4 (06:05→20:56)
[2017-09-12 08:00] VITALS: BP 141/69
[2017-09-12] MEDS: ASPIRIN 81MG TAB.CHEW PO SCH (10:31)
[2017-09-12] MEDS: CARVEDILOL 12.5 MG TABLET PO SCH ×2 (10:32→20:56)
[2017-09-12] MEDS: GABAPENTIN 100 MG CAPSULE PO SCH ×2 (10:32→20:55)
[2017-09-12] MEDS: ISOSORBIDE MONO 30MG TAB SR PO SCH (10:32)
[2017-09-12] MEDS: FAMOTIDINE 20MG TAB 20 MG TAB PO SCH (10:32)
[2017-09-12] MEDS: LOSARTAN 50 MG TABLET PO SCH (10:32)
[2017-09-12] MEDS: SERTRALINE HCL 50 MG TABLET PO SCH (10:33)
[2017-09-12] MEDS: ENOXAPARIN SODIUM 30 MG/0.3 ML SQ SCH (10:34)
[2017-09-12 11:00] VITALS: BP 152/77
[2017-09-12 16:00] VITALS: BP 122/60
[2017-09-12 19:15] VITALS: BP 147/72
[2017-09-12] MEDS: ATORVASTATIN CALCIUM 20 MG TABLET PO SCH (20:56)
[2017-09-13] VITALS (7 sets, daily range): BP systolic 103–152; BP diastolic 50–71
[2017-09-13] MEDS: FUROSEMIDE 10 MG/ML 4ML VIAL IV SCH ×2 (04:59→19:00)
[2017-09-13] MEDS: ACETAMINOPHEN 325 MG TAB PO PRN (04:59)
[2017-09-13] MEDS: HYDRALAZINE HCL 25 MG TABLET PO SCH ×3 (04:59→19:00)
[2017-09-13] MEDS: TRAMADOL HCL 50 MG TABLET PO PRN (05:04)
[2017-09-13] MEDS: INSULIN HUMULIN R 100 UNIT/ML 3ML SQ SCH ×4 (05:56→21:00)
[2017-09-13] MEDS: FAMOTIDINE 20MG TAB 20 MG TAB PO SCH (09:03)
[2017-09-13] MEDS: ASPIRIN 81MG TAB.CHEW PO SCH (09:04)
[2017-09-13] MEDS: GABAPENTIN 100 MG CAPSULE PO SCH ×2 (09:04→20:52)
[2017-09-13] MEDS: ISOSORBIDE MONO 30MG TAB SR PO SCH (09:04)
[2017-09-13] MEDS: SERTRALINE HCL 50 MG TABLET PO SCH (09:04)
[2017-09-13] MEDS: CARVEDILOL 12.5 MG TABLET PO SCH ×2 (09:04→20:52)
[2017-09-13] MEDS: LOSARTAN 50 MG TABLET PO SCH (09:04)
[2017-09-13] MEDS: ENOXAPARIN SODIUM 30 MG/0.3 ML SQ SCH (09:05)
[2017-09-13] MEDS: ATORVASTATIN CALCIUM 20 MG TABLET PO SCH (20:51)
[2017-09-14] MEDS: TRAMADOL HCL 50 MG TABLET PO PRN ×2 (00:10→10:47)
[2017-09-14 04:00] VITALS: BP 142/69
[2017-09-14] MEDS: HYDRALAZINE HCL 25 MG TABLET PO SCH ×2 (04:58→10:31)
[2017-09-14] MEDS: FUROSEMIDE 10 MG/ML 4ML VIAL IV SCH (06:04)
[2017-09-14] MEDS: INSULIN HUMULIN R 100 UNIT/ML 3ML SQ SCH (06:31)
[2017-09-14 07:30] VITALS: BP 157/79
[2017-09-14] MEDS: ENOXAPARIN SODIUM 30 MG/0.3 ML SQ SCH (10:30)
[2017-09-14] MEDS: CARVEDILOL 12.5 MG TABLET PO SCH (10:30)
[2017-09-14] MEDS: FAMOTIDINE 20MG TAB 20 MG TAB PO SCH (10:30)
[2017-09-14] MEDS: SERTRALINE HCL 50 MG TABLET PO SCH (10:31)
[2017-09-14] MEDS: ISOSORBIDE MONO 30MG TAB SR PO SCH (10:31)
[2017-09-14] MEDS: ASPIRIN 81MG TAB.CHEW PO SCH (10:31)
[2017-09-14] MEDS: LOSARTAN 50 MG TABLET PO SCH (10:32)
[2017-09-14] MEDS: GABAPENTIN 100 MG CAPSULE PO SCH (10:32)
[2017-09-14 11:00] VITALS: BP 139/70
== END 2017-09-14 12:35 | disposition home health service (06) | DRG 291 ==
LOC: EDH 17:37 → OBSVTOIN 20:42 → EDHIP 20:42 → 2AH 22:20 → 3BH 09-08 16:00
PROVIDERS: ADMIT Internal Medicine; ATTEND Internal Medicine
PROC: 5A09357 Assistance with Respiratory Ventilation, Less than 24 Consecutive Hours, Continuous Positive Airway Pressure (ICD-10-PCS; 2017-09-04)
PROC: 5A09357 Assistance with Respiratory Ventilation, Less than 24 Consecutive Hours, Continuous Positive Airway Pressure (ICD-10-PCS; 2017-09-05)
PROC: 5A09357 Assistance with Respiratory Ventilation, Less than 24 Consecutive Hours, Continuous Positive Airway Pressure (ICD-10-PCS; 2017-09-06)
PROC: 5A09357 Assistance with Respiratory Ventilation, Less than 24 Consecutive Hours, Continuous Positive Airway Pressure (ICD-10-PCS; 2017-09-07)
PROC: 0W993ZZ Drainage of Right Pleural Cavity, Percutaneous Approach (ICD-10-PCS; principal; 2017-09-09)
DX: I13.0 Hypertensive heart and chronic kidney disease with heart failure and stage 1 through stage 4 chronic kidney disease, or unspecified chronic kidney disease (principal); I50.23 Acute on chronic systolic (congestive) heart failure; J96.21 Acute and chronic respiratory failure with hypoxia; G92 Toxic encephalopathy; N17.9 Acute kidney failure, unspecified; J90 Pleural effusion, not elsewhere classified; E11.22 Type 2 diabetes mellitus with diabetic chronic kidney disease; Z99.81 Dependence on supplemental oxygen; J44.9 Chronic obstructive pulmonary disease, unspecified; Z95.1 Presence of aortocoronary bypass graft; E78.5 Hyperlipidemia, unspecified; I25.10 Atherosclerotic heart disease of native coronary artery without angina pectoris; I25.5 Ischemic cardiomyopathy; E11.51 Type 2 diabetes mellitus with diabetic peripheral angiopathy without gangrene; G47.33 Obstructive sleep apnea (adult) (pediatric); Z96.651 Presence of right artificial knee joint; Z72.0 Tobacco use; N18.3 Chronic kidney disease, stage 3 (moderate); I34.0 Nonrheumatic mitral (valve) insufficiency; E66.01 Morbid (severe) obesity due to excess calories; I16.0 Hypertensive urgency; G47.31 Primary central sleep apnea; Z91.14 Patient's other noncompliance with medication regimen; Z91.19 Patient's noncompliance with other medical treatment and regimen; E87.70 Fluid overload, unspecified; Z88.0 Allergy status to penicillin; Z83.3 Family history of diabetes mellitus; Z82.49 Family history of ischemic heart disease and other diseases of the circulatory system; Z80.8 Family history of malignant neoplasm of other organs or systems; Z68.32 Body mass index [BMI] 32.0-32.9, adult; Z79.899 Other long term (current) drug therapy
CPT/HCPCS: 32555; 36415; 36600; 71045; 71250; 80048; 80053; 81001; 82550; 82553; 82803; 82945; 82948; 83615; 83735; 83874; 83880; 83986; 84100; 84157; 84443; 84484; 85025; 85027; 85378; 85610; 85730; 87071; 87103; 87116; 87205; 87206; 88108; 88305; 89051; 93005; 94660; 94760; A4606; J1650; J1815; J1940

== ENCOUNTER → 2017-11-24 | Outpatient (CLI) | payer MEDICARE ==
[~2017-11-24] MED LIST changes: +ASPI-1005 PO; +ATOR10 PO; +ATOR20TA65 PO; +AUD IH; +ESCI10TA PO; -EZET10TA26 PO; +FOLI1TAB61 PO; +HYDR-3421 PO; +LISI10TA7 PO; +LOSA50TA2 PO; +POLY17PO4 PO
== END | disposition home or self-care (01) ==
LOC: OIH 09:43
PROVIDERS: ATTEND Internal Medicine
DX: I50.9 Heart failure, unspecified (principal); J90 Pleural effusion, not elsewhere classified; R60.9 Edema, unspecified; I51.7 Cardiomegaly
CPT/HCPCS: 71046

== ENCOUNTER 2018-06-05 19:02 | Inpatient (IN) | payer MEDICARE ==
[~2018-06-05] VITALS: Ht 167.6 cm; Wt 100.6 kg
[~2018-06-05 19:02] MED LIST changes: -AMLO10TA2 PO; +AMLO10TA7 PO; -ASPI-1005 PO; -ATOR20TA65 PO; -BENZ-51 PO; -CHOL100018 PO; -FOLI0.8T22 PO; -FURO20TA4 PO; +FURO40TA5 PO; -IPRNEB IH; +ISOS20TA7 PO; -LOSA50TA2 PO; +PANT40TA25 PO; -SERT100T12 PO
[2018-06-05 19:43] LABS: EOSINOPHILS % (AUTO) 4.6 % (0.0-8.0); HEMATOCRIT 31.7 % (42-54); LYMPHOCYTES % (AUTO) 22.2 % (21.0-51.0); MEAN CORPUSCULAR HEMOGLOBIN 31.6 pg (27.0-33.0); MEAN CORPUSCULAR HGB CONC 32.3 g/dL (32.0-36.0); MEAN CORPUSCULAR VOLUME 97.7 fL (79-99); MONOCYTES % (AUTO) 6.9 % (3.0-13.0); NEUTROPHILS % (AUTO) 65.3 % (40.0-77.0); NUCLEATED RED BLOOD CELLS 0.1 % (0.0-0.19); PLATELET COUNT (AUTO) 137 K/uL (130-400); RED BLOOD CELL COUNT(AUTO) 3.24 MIL/uL (4.50-6.20); RED CELL DISTRIBUTION WIDTH 14.6 % (11.0-15.5); WHITE BLOOD COUNT (AUTO) 5.5 K/uL (4.8-10.8)
[2018-06-05 19:48] LABS: INR 1.05 (0.85-1.15); PARTIAL THROMBOPLASTIN TIME 33.6 SEC (26.3-35.5)
[2018-06-05 20:06] LABS: CREATININE 1.9 mg/dL (0.5-1.5); POTASSIUM 5.8 mmol/L (3.5-5.1)
[2018-06-05 20:10] LABS: ALBUMIN 3.5 g/dL (3.5-5.0); BILIRUBIN,TOTAL 0.6 mg/dL (0.2-1.0); TOTAL PROTEIN, SERUM 7.6 g/dL (6.0-8.3)
[2018-06-05] MEDS ORDERED: ONDANSETRON HCL 4 MG/2 ML VIAL ONE (20:12)
[2018-06-05] MEDS ORDERED: MORPHINE SULFATE 4 MG/1ML SYG ONE (20:12)
[2018-06-05] MEDS ORDERED: DiphenhydrAMINE HCL 50 MG/ML VIAL ONE (20:26)
[2018-06-05 20:28] LABS: B-TYPE NATRIURETIC PEPTIDE 951 pg/mL (0-100)
[2018-06-05] MEDS ORDERED: IPRATROPIUM/ALBUTEROL SULFATE 3 ML SOLUTION IH ONE (20:39)
[2018-06-05] MEDS ORDERED: FUROSEMIDE 10 MG/ML 4ML VIAL ONE (20:56)
[2018-06-05] MEDS ORDERED: METHYLPREDNISOLONE SOD SUCC 125MG/2ML VIAL ONE (20:56)
[2018-06-05] MEDS ORDERED: CALCIUM GLUCONATE 1 GM/10 ML VIAL IV ONE (20:56)
[2018-06-05] MEDS ORDERED: DEXTROSE 50%-WATER 50 ML DISP.SYRIN IV ONE (20:57)
[2018-06-05] MEDS ORDERED: INSULIN HUMULIN R 100 UNIT/ML 3ML ONE (20:58)
[2018-06-05] MEDS ORDERED: SODIUM POLYSTYRENE SULFONATE 15 GM/60 ML ML ONE (20:59)
[2018-06-05 22:18] LABS: APPEARANCE,URINE Clear (CLEAR); BILIRUBIN,URINE Negative (NEGATIVE); COLOR,URINE Yellow (YELLOW); GLUCOSE, URINE (UA) Negative (NEGATIVE); KETONES,URINE Negative (NEGATIVE); LEUKOCYTE ESTERASE ,URINE Negative (NEGATIVE); NITRATE,URINE Negative (NEGATIVE); OCCULT BLOOD,URINE Small (NEGATIVE); PROTEIN,URINE POS 2+ (NEGATIVE); UROBILINOGEN,URINE 0.2 mg/dL (0.2-1.0)
[2018-06-05 22:37] LABS: BACTERIA,URINE None Seen /HPF (None Seen); SQUAMOUS EPITHELIAL CELL,UR Few /HPF (0-2); WBC,URINE None Seen /HPF (0-1)
[2018-06-06] MEDS ORDERED: DEXTROSE 50%-WATER 50 ML DISP.SYRIN IV PRN (00:30)
[2018-06-06] MEDS ORDERED: GLUCAGON 1MG KIT 1 MG ML IM PRN (00:30)
[2018-06-06] MEDS ORDERED: ACETAMINOPHEN 325 MG TAB PO PRN (01:00)
[2018-06-06] MEDS ORDERED: ONDANSETRON HCL 4 MG/2 ML VIAL IV PRN (01:00)
[2018-06-06 01:45] LABS: HEMOGLOBIN A1C 4.5 % (4.0-6.0)
[2018-06-06 03:35] VITALS: BP 186/86
--- NOTE | 2018-06-06 04:07 | NUR ---
ADMIT PT ADMITTED TO ROOM 327, AAOX3. NO RESPIRATORY DISTRESS NOTED. NO SOB NOTED. ADMISSION CARE DONE. ADMISSION DATA BASE COMPLETED. SALINE LOCK FLUSHED, PATENT. IN FOR MORE CARE AND MANAGEMENT. Addendum: 06/06/18 at 0426 by RICKEY REYNOLDS RN RN Amended: Links added.
[2018-06-06] MEDS ORDERED: HYDRALAZINE HCL 20 MG/ML VIAL IV PRN (05:00)
[2018-06-06] MEDS ORDERED: MORPHINE SULFATE 4 MG/1ML SYG IV PRN (05:00)
[2018-06-06] MEDS ORDERED: MORPHINE SULFATE 2 MG/ML 1ML SYG IV PRN (05:00)
[2018-06-06] MEDS ORDERED: GABA-531 PO (05:17)
[2018-06-06] MEDS ORDERED: FLUT16H NS (05:17)
[2018-06-06] MEDS ORDERED: SERT100T12 PO (05:17)
[2018-06-06] MEDS ORDERED: EZET10TA26 PO (05:17)
[2018-06-06] MEDS ORDERED: TAMS0.4C32 PO (05:17)
[2018-06-06] MEDS ORDERED: ASPI-1197 PO (05:17)
[2018-06-06] MEDS ORDERED: FERR325T22 PO (05:17)
[2018-06-06] MEDS ORDERED: SPIR25TA6 PO (05:17)
[2018-06-06 06:01] LABS: BASOPHILS % (AUTO) 0.5 % (0.0-5.0); HEMATOCRIT 30.9 % (42-54); LYMPHOCYTES % (AUTO) 8.3 % (21.0-51.0); MEAN CORPUSCULAR VOLUME 97.1 fL (79-99); MONOCYTES % (AUTO) 0.7 % (3.0-13.0); NEUTROPHILS % (AUTO) 90.5 % (40.0-77.0); PLATELET COUNT (AUTO) 138 K/uL (130-400); RED BLOOD CELL COUNT(AUTO) 3.18 MIL/uL (4.50-6.20); RED CELL DISTRIBUTION WIDTH 14.3 % (11.0-15.5); WHITE BLOOD COUNT (AUTO) 5.1 K/uL (4.8-10.8)
[2018-06-06 06:11] LABS: ALBUMIN 3.2 g/dL (3.5-5.0); BILIRUBIN,TOTAL 0.5 mg/dL (0.2-1.0); CREATININE 2.1 mg/dL (0.5-1.5); MAGNESIUM 2.2 mg/dL (1.80-2.40); TOTAL PROTEIN, SERUM 7.7 g/dL (6.0-8.3)
[2018-06-06] MEDS: INSULIN HUMULIN R 100 UNIT/ML 3ML SQ SCH ×4 (06:18→21:00)
[2018-06-06 08:00] VITALS: BP 183/94
[2018-06-06] MEDS ORDERED: SODIUM POLYSTYRENE SULFONATE 15 GM/60 ML ML RC SCH (08:30)
[2018-06-06] MEDS ORDERED: HYDROCODONE/ACETAMINOPHEN 5/325 MG TAB PO PRN (09:30)
[2018-06-06] MEDS ORDERED: DIPHENHYDRAMINE HCL 25 MG CAPSULE PO PRN (09:30)
[2018-06-06] MEDS ORDERED: SODIUM POLYSTYRENE SULFONATE 15 GM/60 ML ML PO SCH (09:30)
--- NOTE | 2018-06-06 10:09 | NUR ---
PATIENT REFUSED TO TAKE ANY OF HIS MEDICATIONS AND SAID THAT HE WILL NOT TAKE ANY MEDICATION UNTIL HE SPEAKS TO HIS DR SARABIA AND HE REFUSED TO SIGN THE REFUSAL TO TREATMENT FORM. THE CHARGE NURSE TYESHA WAS MADE AWARE AND I WILL NOTIFY OF HIS REFUSAL TO TREATMENT.
--- NOTE | 2018-06-06 11:00 | NUR ---
ATTEMPT MADE TO GIVE PATIENT HIS MEDICATION BUT HE IS STILL REFUSING TREATMENT. HOSPITALIST PROJECTOR BOOTH OPERATOR WAS NOTIFIED OF THE PATIENT NON-COMPLIANCE AND THE CHARGE NURSE TYESHA RECINOS WAS MADE AWARE ALSO TO TALK TO THE PATIENT. HE IS STILL REFUSING TO SIGN THE REFUSAL TO TREATMENT FORM.
[2018-06-06 12:22] VITALS: BP 183/84
[2018-06-06] MEDS: FUROSEMIDE 10 MG/ML 4ML VIAL IVP SCH ×2 (13:48→21:49)
[2018-06-06] MEDS: ISOSORBIDE MONO 30MG TAB SR PO SCH (13:50)
[2018-06-06] MEDS: ATORVASTATIN CALCIUM 40 MG TABLET PO SCH (13:50)
--- NOTE | 2018-06-06 13:50 | NUR ---
PATIENT IS STILL REFUSING MEDICATIONS, CHARGE NURSE TYESHA WAS MADE AWARE AND HE CAME TO TALK TO THE PATIENT. HE FINALLY DECIDES TO TAKE HIS MEDICATIONS.
[2018-06-06] MEDS: PANTOPRAZOLE SODIUM 40 MG TABLET.DR PO SCH (13:51)
[2018-06-06] MEDS: HYDRALAZINE HCL 10 MG TABLET PO SCH ×3 (13:51→21:48)
[2018-06-06] MEDS: ASPIRIN 81MG TAB.CHEW PO SCH (13:51)
[2018-06-06] MEDS: CARVEDILOL 6.25 MG TABLET PO SCH ×2 (13:52→21:49)
[2018-06-06] MEDS: ENOXAPARIN SODIUM 30 MG/0.3 ML SQ SCH (13:54)
[2018-06-06 16:00] VITALS: BP 166/76
[2018-06-06 20:00] VITALS: BP 144/71
[2018-06-07] VITALS: BP 138/61
[2018-06-07 04:00] VITALS: BP 138/143
[2018-06-07 05:22] LABS: HEMATOCRIT 27.3 % (42-54); MEAN CORPUSCULAR HEMOGLOBIN 32.2 pg (27.0-33.0); MEAN CORPUSCULAR HGB CONC 33.3 g/dL (32.0-36.0); MEAN CORPUSCULAR VOLUME 96.7 fL (79-99); PLATELET COUNT (AUTO) 118 K/uL (130-400); RED BLOOD CELL COUNT(AUTO) 2.82 MIL/uL (4.50-6.20); RED CELL DISTRIBUTION WIDTH 13.9 % (11.0-15.5); WHITE BLOOD COUNT (AUTO) 9.6 K/uL (4.8-10.8)
[2018-06-07 05:37] LABS: BAND NEUTROPHILS % (MANUAL) 10 % (0-2); LYMPHOCYTES % (MANUAL) 16 % (22-44); MONOCYTES % (MANUAL) 4 % (2-9); SEGMENTED NEUTROPHILS % 70 % (40-70)
[2018-06-07 05:38] LABS: MAN.DIFF COMMENT-IMPRESSION MANUAL DIFFERENTIAL; PLATELET MORPHOLOGY COMMENT SLIGHTLY DECREASED
[2018-06-07 05:56] LABS: CREATININE 2.2 mg/dL (0.5-1.5); MAGNESIUM 2.1 mg/dL (1.80-2.40); PHOSPHORUS 4.3 mg/dL (2.5-4.9); POTASSIUM 4.9 mmol/L (3.5-5.1); THYROID STIMULATING HORMONE 0.67 uIU/mL (0.36-3.74); URIC ACID 7.1 mg/dL (2.6-7.2)
[2018-06-07] MEDS: INSULIN HUMULIN R 100 UNIT/ML 3ML SQ SCH (06:01)
[2018-06-07 08:20] VITALS: BP 160/89
[2018-06-07] MEDS ORDERED: FOLIC ACID/VITAMIN B COMP W-C 1 MG CAPSULE PO SCH (09:00)
[2018-06-07] MEDS ORDERED: DOBUTAMINE 250MG/D5 250ML 250 ML IV SCH (09:00)
--- NOTE | 2018-06-07 09:40 | NUR ---
Paulino on floor Verbal report given and patient transferred via wheelchair to 220
--- NOTE | 2018-06-07 09:45 | NUR ---
TRANSFER FROM 3RD FLOOR VIA WHEELCHAIR, A&OX3, CALM AND COOPERATIVE. PT IS AMBULATORY, GAIT SLOW BUT STEADY WITH STAND BY ASSIST AND O2. PT DOES C/O GENERALIZED BODY WEAKNESS AND DYSPNEA ON EXERTION. PT IN SEMI BARRAGAN'S POSITION, RESTING COMFORTABLY. CALL LIGHT WITHIN REACH.
[2018-06-07] MEDS: ISOSORBIDE MONO 30MG TAB SR PO SCH (10:32)
[2018-06-07] MEDS: ATORVASTATIN CALCIUM 40 MG TABLET PO SCH (10:32)
[2018-06-07] MEDS: FUROSEMIDE 10 MG/ML 4ML VIAL IVP SCH (10:32)
[2018-06-07] MEDS: PANTOPRAZOLE SODIUM 40 MG TABLET.DR PO SCH (10:32)
[2018-06-07] MEDS: ENOXAPARIN SODIUM 30 MG/0.3 ML SQ SCH (10:33)
[2018-06-07] MEDS: ASPIRIN 81MG TAB.CHEW PO SCH (10:33)
[2018-06-07] MEDS: CARVEDILOL 6.25 MG TABLET PO SCH (10:33)
[2018-06-07] MEDS: HYDRALAZINE HCL 10 MG TABLET PO SCH (10:37)
[2018-06-07 11:00] VITALS: BP 178/66
[2018-06-07 16:00] VITALS: BP 158/78
--- NOTE | 2018-06-07 16:55 | NUR ---
FOLLOW UP APPOINTMENT WITH DR LOOMIS 06/22/18 AT 3:00 P.M. INFORMATION GIVEN TO PATIENT AT BEDSIDE.
--- NOTE | 2018-06-07 19:58 | NUR ---
AGAINST MEDICAL ADVICE PT IS A&OX3, CALM AND DOES NOT APPEAR TO BE IN ANY DISTRESS. PT STATES HE DOES NOT WANT THE DOBUTAMINE DRIP OR TELE MONITOR AND WISHES TO GO HOME AGAINST MEDICAL ADVICE. INFORMED PT THAT CONSEQUENCES OF LEAVING MAY INCLUDE, BUT NOT LIMITED TO, WORSENING SHORTNESS OF BREATH, COUGH, EDEMA TO LOWER EXTREMITIES, MYOCARDIAL INFARCTION, STROKE AND . PT UNDERSTANDS RISKS AND ACCEPTS RESPONSIBILITY. AGAINST MEDICAL ADVICE FORM SIGNED. PIV REMOVED AND INTACT, DR LOOMIS AND DR ESPINOSA NOTIFIED.
== END 2018-06-07 19:48 | disposition left against medical advice (07) | DRG 682 ==
LOC: EDH 19:02 → EDHIP 23:52 → 3DH 06-06 03:21 → 2DH 06-07 09:35
PROVIDERS: ADMIT Internal Medicine; ATTEND Internal Medicine
DX: N17.9 Acute kidney failure, unspecified (principal); I50.23 Acute on chronic systolic (congestive) heart failure; I13.0 Hypertensive heart and chronic kidney disease with heart failure and stage 1 through stage 4 chronic kidney disease, or unspecified chronic kidney disease; R18.8 Other ascites; N18.4 Chronic kidney disease, stage 4 (severe); K57.30 Diverticulosis of large intestine without perforation or abscess without bleeding; E87.5 Hyperkalemia; D64.9 Anemia, unspecified; E11.22 Type 2 diabetes mellitus with diabetic chronic kidney disease; E11.51 Type 2 diabetes mellitus with diabetic peripheral angiopathy without gangrene; F17.200 Nicotine dependence, unspecified, uncomplicated; G47.33 Obstructive sleep apnea (adult) (pediatric); I25.10 Atherosclerotic heart disease of native coronary artery without angina pectoris; I25.5 Ischemic cardiomyopathy; J44.9 Chronic obstructive pulmonary disease, unspecified; Z53.21 Procedure and treatment not carried out due to patient leaving prior to being seen by health care provider; Z71.6 Tobacco abuse counseling; Z82.5 Family history of asthma and other chronic lower respiratory diseases; Z91.11 Patient's noncompliance with dietary regimen; Z91.19 Patient's noncompliance with other medical treatment and regimen; Z95.1 Presence of aortocoronary bypass graft; Z87.01 Personal history of pneumonia (recurrent); Z88.0 Allergy status to penicillin; Z82.49 Family history of ischemic heart disease and other diseases of the circulatory system; Z90.49 Acquired absence of other specified parts of digestive tract; Z79.84 Long term (current) use of oral hypoglycemic drugs; Z79.899 Other long term (current) drug therapy
CPT/HCPCS: 36415; 71045; 74176; 80048; 80053; 81001; 82550; 82948; 83036; 83690; 83735; 83880; 84100; 84443; 84484; 84550; 85025; 85610; 85730; 93005; 94640; 99291; G0378; J0610; J1200; J1250; J1650; J1815; J1940; J2270; J2405; J2930; J7070

== ENCOUNTER 2018-07-11 06:42 | Inpatient (IN) | payer MEDICARE | END 2018-07-14 18:31 | LOC: EDH 06:42 → EDHIP 09:58 → 2BH 11:32 → 2AH 07-12 18:04 | DX: I13.0 Hypertensive heart and chronic kidney disease with heart failure and stage 1 through stage 4 chronic kidney disease, or unspecified chronic kidney disease (principal); J96.21 Acute and chronic respiratory failure with hypoxia; I50.23 Acute on chronic systolic (congestive) heart failure; J44.1 Chronic obstructive pulmonary disease with (acute) exacerbation; N17.9 Acute kidney failure, unspecified; I48.92 Unspecified atrial flutter; Z99.81 Dependence on supplemental oxygen; I50.9 Heart failure, unspecified; I25.10 Atherosclerotic heart disease of native coronary artery without angina pectoris; Z95.1 Presence of aortocoronary bypass graft; E11.21 Type 2 diabetes mellitus with diabetic nephropathy; E11.22 Type 2 diabetes mellitus with diabetic chronic kidney disease; N18.3 Chronic kidney disease, stage 3 (moderate); F17.210 Nicotine dependence, cigarettes, uncomplicated ==

== ENCOUNTER 2018-08-16 14:13 | Inpatient (IN) | payer MEDICARE ==
[~2018-08-16] VITALS: Ht 160 cm; Wt 93.1 kg
[~2018-08-16 14:13] MED LIST changes: -AMLO10TA7 PO; +AMLO5TAB4 PO; -ASPI-1012 PO; +ASPI-1197 PO; -ESCI10TA PO; +EZET10TA26 PO; +FAMO-136 PO; +FERR325T22 PO; +FLUT16H NASAL; -FURO40TA5 PO; +FURO40TA7 PO; -GABA-531 PO; +GLUC1KIT IJ; -HYDR-3421 PO; -LISI10TA7 PO; +LISI2.5T2 PO; +LOPE2CAP PO; +SERT100T12 PO; +TAMS0.4C32 PO; +[UNRECOGNIZED DRUG - CODE] IJ
[2018-08-16] MEDS ORDERED: ACETAMINOPHEN 325 MG TAB ONE (14:54)
[2018-08-16] MEDS ORDERED: LEVOFLOXACIN 500 MG/D5W 100 ML 100 ML ONE (14:54)
[2018-08-16 14:58] LABS: BASOPHILS % (AUTO) 0.1 % (0.0-5.0); EOSINOPHILS % (AUTO) 0.7 % (0.0-8.0); HEMATOCRIT 24.7 % (42-54); MEAN CORPUSCULAR HEMOGLOBIN 32.4 pg (27.0-33.0); MEAN CORPUSCULAR HGB CONC 34.2 g/dL (32.0-36.0); MEAN CORPUSCULAR VOLUME 94.7 fL (79-99); MONOCYTES % (AUTO) 4.6 % (3.0-13.0); NEUTROPHILS % (AUTO) 92.6 % (40.0-77.0); NUCLEATED RED BLOOD CELLS 0.2 % (0.0-0.19); PLATELET COUNT (AUTO) 120 K/uL (130-400); RED CELL DISTRIBUTION WIDTH 13.1 % (11.0-15.5); WHITE BLOOD COUNT (AUTO) 13.9 K/uL (4.8-10.8)
[2018-08-16 15:17] LABS: INR 0.98 (0.85-1.15); PARTIAL THROMBOPLASTIN TIME 28.9 SEC (26.3-35.5); PROTHROMBIN TIME 10.3 SEC (9.6-11.6)
[2018-08-16 15:28] LABS: POTASSIUM 4.1 mmol/L (3.5-5.1)
[2018-08-16 15:35] LABS: ALBUMIN 2.6 g/dL (3.5-5.0); BILIRUBIN,TOTAL 0.5 mg/dL (0.2-1.0); TOTAL PROTEIN, SERUM 5.8 g/dL (6.0-8.3)
[2018-08-16 15:56] LABS: TROPONIN I 0.78 ng/mL (0.00-0.06)
[2018-08-16] MEDS ORDERED: CEFTRIAXONE SODIUM 1 GM ONE (16:43)
[2018-08-16] MEDS ORDERED: PROMETHAZINE HCL 25 MG/ML 1ML AMPULE IM ONE (18:58)
[2018-08-16] MEDS ORDERED: METHYLPREDNISOLONE SOD SUCC 125MG/2ML VIAL ONE (18:58)
[2018-08-16] MEDS ORDERED: ACETAMINOPHEN-CODEINE 300/30MG TAB ONE (18:59)
[2018-08-16] MEDS ORDERED: GLUCAGON 1MG KIT 1 MG ML IM PRN (19:00)
[2018-08-16] MEDS ORDERED: DEXTROSE 50%-WATER 50 ML DISP.SYRIN IV PRN (19:00)
[2018-08-16 19:01] LABS: APPEARANCE,URINE Clear (CLEAR); BILIRUBIN,URINE Negative (NEGATIVE); COLOR,URINE Yellow (YELLOW); GLUCOSE, URINE (UA) Negative (NEGATIVE); KETONES,URINE Negative (NEGATIVE); LEUKOCYTE ESTERASE ,URINE Negative (NEGATIVE); NITRATE,URINE Negative (NEGATIVE); OCCULT BLOOD,URINE Trace (NEGATIVE); PROTEIN,URINE POS 1+ mg/dL (NEGATIVE); UROBILINOGEN,URINE 0.2 mg/dL (0.2-1.0)
[2018-08-16] MEDS ORDERED: IPRATROPIUM/ALBUTEROL SULFATE 3 ML SOLUTION IH ONE (19:02)
[2018-08-16] MEDS: SODIUM CHLORIDE 0.9% 1000ML 1,000 ML IV SCH (19:06)
[2018-08-16] MEDS ORDERED: ONDANSETRON HCL 4 MG/2 ML VIAL IV PRN (19:15)
[2018-08-16] MEDS ORDERED: ACETAMINOPHEN 325 MG TAB PO PRN ×2 (19:15)
[2018-08-16 19:26] LABS: BACTERIA,URINE Few /HPF (None Seen); RBC,URINE 0-1 /HPF (0-1); WBC,URINE 0-1 /HPF (0-1)
[2018-08-16 19:27] LABS: SQUAMOUS EPITHELIAL CELL,UR Rare /HPF (0-2)
[2018-08-16 19:50] LABS: PHOSPHORUS 2.8 mg/dL (2.5-4.9)
[2018-08-16 19:52] LABS: HEMOGLOBIN A1C 4.9 % (4.0-6.0)
[2018-08-16 20:58] LABS: AMPHET/METH SCREEN,URINE NEGATIVE (NEGATIVE); BARBITURATE SCREEN, URINE NEGATIVE (NEGATIVE); BENZODIAZEPINES SCREEN,URINE NEGATIVE (NEGATIVE); CANNABINOID SCREEN,URINE NEGATIVE (NEGATIVE); COCAINE SCREEN,URINE POSITIVE (NEGATIVE); OPIATE SCREEN,URINE NEGATIVE (NEGATIVE); PHENCYCLIDINE SCREEN,URINE NEGATIVE (NEGATIVE)
[2018-08-16] MEDS: INSULIN HUMULIN R 100 UNIT/ML 3ML SQ SCH (21:00)
[2018-08-16] MEDS ORDERED: SODIUM CHLORIDE 3% FOR INHALATION 4 ML/AMP VIAL.NEB IH ONE (21:43)
[2018-08-16 22:15] VITALS: BP 141/56
[2018-08-16] MEDS: IPRATROPIUM/ALBUTEROL SULFATE 3 ML SOLUTION IH SCH (23:04)
[2018-08-16 23:15] LABS: TROPONIN I 5.45 ng/mL (0.00-0.06)
[2018-08-16] MEDS ORDERED: ASPIRIN 325MG EC TAB 325 MG TABLET.DR PO STA (23:25)
--- NOTE | 2018-08-16 23:35 | NUR ---
ELEVATED TROPONIN Critical lab value for troponin is at 5.345; called WEAVER DOBBY LOOM Andrew Healy and reported lab value. Patient resting in bed, AA&O X3. No shortness of breath or distress. No pain, chest pain; only when coughing and located at mid sternum. Vital signs are WNL. Asked to read EKG from ER; read EKG report and sent EKGs to office. EKG was retaken and WEAVER DOBBY LOOM Andrew Healy placed stat orders. WEAVER DOBBY LOOM made rounds and assessed patient. Orders to consult MD. Wen and give stat Aspirin 325 mg PO. Called MD Wen; answering service put MD directly on line. Informed patient's diagnose and informed MD of elevated troponin. Reported initial troponin of 0.78, and now it is at 5.45. Reported that patient has no chest pain; only when coughing and located on mid sternum. Informed him of patient's heart rhythm, ST depression at II, III, and AVF. is aware of stat Aspirin of 325 mg po; no lovenox due to low platelets of 120. is aware of patient being on tele monitor and having cardiac panel Q6 with EKG. states he will see patient in am and to continue to monitor patient. No orders were obtained. Will continue to monitor patient.
[2018-08-17] MEDS: IPRATROPIUM/ALBUTEROL SULFATE 3 ML SOLUTION IH SCH ×4 (01:05→14:41)
[2018-08-17 03:21] LABS: HEMATOCRIT 26.9 % (42-54); MEAN CORPUSCULAR HEMOGLOBIN 32.3 pg (27.0-33.0); MEAN CORPUSCULAR VOLUME 94.8 fL (79-99); PLATELET COUNT (AUTO) 104 K/uL (130-400); RED BLOOD CELL COUNT(AUTO) 2.84 MIL/uL (4.50-6.20); WHITE BLOOD COUNT (AUTO) 12.1 K/uL (4.8-10.8)
[2018-08-17 03:53] LABS: BAND NEUTROPHILS % (MANUAL) 1 % (0-2); LYMPHOCYTES % (MANUAL) 4 % (22-44); MAN.DIFF COMMENT-IMPRESSION MANUAL DIFFERENTIAL; MONOCYTES % (MANUAL) 1 % (2-9); PLATELET MORPHOLOGY COMMENT SLIGHTLY DECREASED; SEGMENTED NEUTROPHILS % 94 % (40-70)
[2018-08-17 04:00] LABS: BILIRUBIN,TOTAL 0.4 mg/dL (0.2-1.0)
[2018-08-17 04:01] LABS: ALBUMIN 2.7 g/dL (3.5-5.0); TOTAL PROTEIN, SERUM 6.5 g/dL (6.0-8.3)
[2018-08-17 04:02] LABS: TROPONIN I 3.94 ng/mL (0.00-0.06)
[2018-08-17 04:05] VITALS: BP 151/61
[2018-08-17] MEDS: METHYLPREDNISOLONE SOD SUCC 40MG/ML 1ML IVP SCH ×2 (05:27→12:00)
[2018-08-17] MEDS ORDERED: SODIUM CHLORIDE 3% FOR INHALATION 4 ML/AMP VIAL.NEB IH ONE (06:41)
[2018-08-17] MEDS: INSULIN HUMULIN R 100 UNIT/ML 3ML SQ SCH ×2 (06:53→12:08)
[2018-08-17 08:00] VITALS: BP 136/66
[2018-08-17] MEDS ORDERED: FAMOTIDINE 20MG TAB 20 MG TAB PO SCH (09:00)
[2018-08-17] MEDS ORDERED: ASPIRIN 325MG EC TAB 325 MG TABLET.DR PO SCH (09:00)
[2018-08-17] MEDS: SODIUM CHLORIDE 0.9% 1000ML 1,000 ML IV SCH (09:24)
--- NOTE | 2018-08-17 11:19 | NUR ---
IA ATTEMPTED PT IN ROOM, KNOWN TO THIS RN HEDIS FROM PREVIOUS ADMIT. PT YELLING AT NURSE. STATES HAS ARTHRITIS IN HIS HANDS BECAUSE WE GAVE HIM MEDICATION ON THE LAST ADMISSION. STATES SINCE HIS ADMIT HAS HAS HIS PROVIDER FEED HIM AND HOLD HIS CUP. ADVISE PT THAT PEOPLE WITH ARTHRITIS ARE ENCOURAGED TO CONTINUE TO MOBILIZE THEIR JOINTS MUCH POSSIBLE OR THEIR FUNCTION WILL DECLINE. ADVISED THIS APPROACH. PT REFUSED AND ASKED CM TO LEAVE. ADVISED PT WE WILL NOT BE DOING A STUDY OF THE LAST MEDS GIVEN HERE IN THE HOSPTIAL TO DISCOVER WHICH GAVE HIM ARTHRITIS IN THE TIME HE WAS AWAY FROM HERE. HAD MULTIPLE COMPLAINS ABOUT NURSING. WHICH HAVE BEEN NOTED. IA DEFERRED AT THIS TIME.
[2018-08-17 12:00] VITALS: BP 148/86
[2018-08-17] MEDS ORDERED: LEVOFLOXACIN 250 MG/D5W 50ML 50 ML IV SCH (15:00)
[2018-08-17 16:00] VITALS: BP 145/66
[2018-08-17] MEDS ORDERED: CEFTRIAXONE SODIUM 1 GM IV SCH (16:00)
--- NOTE | 2018-08-17 16:13 | NUR ---
AMA PATIENT WAS VERY AGITATED AND SCREAMING STATED "ALL OF YOU ARE GOOD FOR NOTHING. NO DOCTOR HAS EVEN CAME TO SEE ME TODAY" REMINDED PATIENT THAT DR. BAY AND ART CODY VISITED HIM TODAY. PATIENT PROCEEDED TO CALL ME A LIAR AND STATED HE WAS GOING TO CALL HIS FRIEND TO PICK HIM UP. I TRIED TO CALM THE PATIENT DOWN AND EXPLAINED TO HIM WHY HE CAN'T LEAVE THE HOSPITAL. PATIENT STATED HE DID NOT CARE LESS AND PULLED OUT HIS IV, BLOOD WAS EVERYWHERE, I WRAPPED HIS IV SITE GOOD POSSIBLE BECAUSE PT WAS STILL VERY COMBATIVE. FILLING HAND AWARE. PATIENT REFUSED TO SIGN AMA FORM. LORNA SMALL WITNESSED PATIENT WISHES TO LEAVE AGAINST MEDICAL ADVICE.PATIENT BECAME MORE AGITATED WE INTENDED TO CALM HIM DOWN. SECURITY CALLED TO HELP ESCORT PATIENT OUT OF THE HOSPITAL. PCP VIKTOR AT SIDE. PATIENT CONTINUED SCREAMING AT OTHER STAFF IN THE HALLWAY. ART CODY AWARE OF SITUATION.
[2018-08-17] MEDS ORDERED: METOPROLOL TARTRATE 25 MG TAB PO SCH (21:00)
== END 2018-08-17 15:40 | disposition left against medical advice (07) | DRG 871 ==
LOC: EDH 14:13 → EDHIP 18:27 → 3CH 21:29
PROVIDERS: ADMIT Internal Medicine; ATTEND Internal Medicine
DX: A41.9 Sepsis, unspecified organism (principal); J18.9 Pneumonia, unspecified organism; I21.4 Non-ST elevation (NSTEMI) myocardial infarction; J44.0 Chronic obstructive pulmonary disease with (acute) lower respiratory infection; I13.0 Hypertensive heart and chronic kidney disease with heart failure and stage 1 through stage 4 chronic kidney disease, or unspecified chronic kidney disease; I50.42 Chronic combined systolic (congestive) and diastolic (congestive) heart failure; N18.4 Chronic kidney disease, stage 4 (severe); R65.20 Severe sepsis without septic shock; D63.1 Anemia in chronic kidney disease; E11.22 Type 2 diabetes mellitus with diabetic chronic kidney disease; E11.51 Type 2 diabetes mellitus with diabetic peripheral angiopathy without gangrene; E78.5 Hyperlipidemia, unspecified; F17.210 Nicotine dependence, cigarettes, uncomplicated; I25.10 Atherosclerotic heart disease of native coronary artery without angina pectoris; Z53.21 Procedure and treatment not carried out due to patient leaving prior to being seen by health care provider; I25.5 Ischemic cardiomyopathy; Z82.5 Family history of asthma and other chronic lower respiratory diseases; Z91.14 Patient's other noncompliance with medication regimen; Z91.19 Patient's noncompliance with other medical treatment and regimen; Z95.1 Presence of aortocoronary bypass graft; Z99.81 Dependence on supplemental oxygen; Z83.3 Family history of diabetes mellitus; Z82.49 Family history of ischemic heart disease and other diseases of the circulatory system; Z82.3 Family history of stroke; Z88.0 Allergy status to penicillin
CPT/HCPCS: 36415; 71045; 74176; 80053; 80305; 80339; 81001; 82550; 82948; 83036; 83605; 83735; 83874; 83880; 84100; 84484; 85025; 85610; 85730; 86140; 87040; 87071; 87088; 87205; 87804; 93005; 94640; 94664; A4218; G0378; J0696; J1815; J1956; J2550; J2920; J2930; J7030